=== PATIENT | male | born 1970 | race Caucasian/White ===

== ENCOUNTER 2024-07-11 15:09 | Observation (INO) | payer SELFPAY ==
[2024-07-11] VITALS (8 sets, daily range): BP systolic 101–134; BP diastolic 65–85; PULSE 91–120; TEMP 36.6–38.4; O2SAT 91–98; BMI 33.9; BMI 32.4
--- NOTE | 2024-07-11 15:14 | ED_ITS ---
[facility] HPI - General Adult General Chief complaint: Urogenital-Male Stated complaint: Testicular Time Seen by Provider: 07/11/24 15:14 Source: patient Mode of arrival: walk-in Limitations: no limitations History of Present Illness HPI narrative: The patient is a 53-year-old male presenting to the emergency department complaining of testicular pain. He states his scrotum is swollen and hard. The patient states that the left side is more uncomfortable than the right. Patient does have a history of an inguinal hernia but he states it was repaired. Patient states the pain is a 10 out of 10. Worse to palpate. Relieved by nothing. Pain does not radiate or move anywhere. Patient has a pronounced fullness from the left inguinal area into his scrotum on the left side. Patient states that this has been present since 5 PM yesterday. Patient denies any fever or chills. Denies any trauma. Denies any dysuria, urgency, frequency. No history of kidney stones. He states he does have a history of an inguinal hernia but states it was surgically repaired years ago. Patient did have a bowel movement and he had no diarrhea or constipation today. No black, bloody, tarry stools. Patient does not have a history of testicular torsion. Patient has not had any testicular infections. Related Data Home Medications ?Medication ?Instructions ?Recorded ?Confirmed No Known Home Medications 07/11/24 07/11/24 Allergies Allergy/AdvReac Type Severity Reaction Status Date / Time Iodinated Contrast Media AdvReac Rash Verified 07/11/24 16:39 Opioid HPI Opioid Management Most Recent Opioid Data: Last Pain Scale 4 07/11/24 17:15 07/11/24 Last ED Pain Assessment 07/11/24 17:15 Last MAR Pain Assessment 07/11/24 16:35 Review of Systems ROS Narrative 10 Systems were reviewed, and unless not ed in the [facility], all other systems are reviewed, unremarkable, or noncontributory. Exam Narrative Exam Narrative: Prior to examining the patient, I have washed with hospital approved and provided Antiseptic Hand Dairy Bacteriologist and have also applied gloves.? Prior to touching the patient, I asked for consent to examine the patient.? General: Alert and oriented, well nourished, mild distress. Eye: PERRL, EOMI, normal conjunctiva. HENT: Normocephalic, normal hearing, moist oral mucosa, no scleral icterus Lungs: Clear to auscultation and percussion, non-labored respiration. Heart: Normal rate, regular rhythm, no murmur, gallop or edema. Abdomen: Soft, non-tender, non-distended, normal bowel sounds, no masses. Urinary: Patient has normal external male genitalia. He is circumcised. His scrotum has good cremasteric reflex bilaterally. The scrotum contents feel firm and enlarged and extend up into the left inguinal canal. Testicles cannot be palpated. I could not auscultate bowel sounds in the scrotal area. The bulge is not reducible. It has indurated skin. There is no Nikolsky sign or skin breakdown in the scrotal sac Musculoskeletal: Normal range of motion and strength, no tenderness or swelling. Skin: Skin is warm, dry and pink, no rashes or lesions. Patient has no evidence of Bruce's. There patient has evidence of red and indurated skin but there is no well-demarcated border. Neurologic: Awake, alert, and oriented X3, CN II-XII intact. Psychiatric: Cooperative, appropriate mood and affect.? Following the conclusion of the examination, I have washed my hands thoroughly after removing examination gloves. Constitutional Vital Signs, click to edit/add: Last Vital Signs Temp 101.2 F H 07/11/24 16:43 Pulse 107 H 07/11/24 18:02 Resp 24 H 07/11/24 18:02 BP 108/70 07/11/24 18:02 Pulse Ox 95 07/11/24 18:02 O2 Del Method Room Air 07/11/24 18:02 Course Course Hospital Course: Upon seeing the patient I immediately instructed the patient that could have an incarcerated left inguinal hernia. Working to get a CT scan with IV contrast and we are going to hold laboratories. Patient was given IV 1 L normal saline bolus. Patient was also going to be given morphine 4 mg IV push and Zofran 4 mg IV push. Consultations Consultation #1: Discussed this case with the insulator technician. Although not listed as an allergy on our platform they have that the patient does have a contrast allergy. I went in and spoke with the patient about his contrast allergy and he states it is a rash. We are going to prophylactically give the patient Benadryl 50 mg IV push and methylprednisolone 125 mg IV push. I spoke to radiology personally. Time: 15:41 Consultation #2: Dr. Douglass who indicates that I can admit the patient to internal medicine. He agrees with my antibiotic selection. He states that the patient should resolve on his own. Time: 18:28 Consultation #3: Opportunity to speak to Yocasta. Yocasta was willing to accept the admission on behalf of . Placed. Time: 18:38 Vital Signs Vital signs: Vital Signs Pulse Rate 120 H 07/11/24 15:15 Respiratory Rate 22 H 07/11/24 15:15 Blood Pressure 134/82 07/11/24 15:15 Pulse Oximetry 98 07/11/24 15:15 Oxygen Delivery Method Room Air 07/11/24 15:15 Temperature 101.2 F H 07/11/24 16:43 Pulse Rate 107 H 07/11/24 18:02 Respiratory Rate 24 H 07/11/24 18:02 Blood Pressure 108/70 07/11/24 18:02 Pulse Oximetry 95 07/11/24 18:02 Oxygen Delivery Method Room Air 07/11/24 18:02 Medical Decision Making [facility] Narrative Medical decision making narrative: 15:44 sepsis risk appears on the patient's chart. I do not believe that the patient is septic from an infectious etiology. I believe the patient's pulse and respiratory rate are elevated simply because of intractable pain. 16:55 patient has labs of came back as well as the imaging. Patient has a lactic acid did have 4.1. Liter of fluid was added. However, when he went blood cell count of 0.9 thousand was seen, I added blood cultures x 2 and initiated Zosyn and vancomycin antibiotic therapy. The CT scan does not show any definitive etiology for his discomfort and pain. Therefore I ordered an ultrasound of the patient's please note that I have considered alternative diagnosis like 40 years gangrene but the patient does not have any evidence of Nikolsky sign, no crepitance in the testicles, no dark or eschar type tissue. 17:05 to reevaluate the patient and the patient tells me that his last meal was yesterday. The patient was sipping on root beer however when he came in. 18:15 case with plastics technician who tells me that she sees a large hydrocele on the left side with a lot of septation present reminiscent of an infectious process. Furthermore, she states that the skin over that painful hydrocele is thickened. The patient has already been started on the antibiotic therapy. 18:[address] Douglass 18:35 I spoke with Yocasta for internal medicine 18:40 magnesium 2 the patient's treatment regimen. The patient's magnesium is 1.4. I went in and reassessed the patient and queried him. He states that he quit drinking alcohol about 10 years ago and he states he does not know how or why he would be having depleted magnesium. Differential Diagnosis Differential Diagnosis: Incarcerated left inguinal hernia, trauma, testicular torsion, renal calcul Medical Records Medical records reviewed: Yes I reviewed the patient's medical records Medical records narrative: There are no medical records in our system available to me. Lab Data Lab results reviewed: Yes I reviewed the patient's lab results Lab results narrative: [place] has criteria suggest has severe sepsis. He is a white count of 22.9K and an initial Lactate of 4.2. Labs: Lab Results 07/11/24 07/11/24 07/11/24 Range/Units 15:30 16:55 17:09 WBC 22.9 H (4.0-11.0) 10^3/uL RBC 5.16 (4.70-6.10) 10^6/uL Hgb 15.4 (14.0-18.0) g/dL Hct 44.2 (42.0-54.0) % MCV 85.7 (80.0-94.0) fL MCH 29.8 (25.9-34.0) pg MCHC 34.8 (29.9-35.2) g/dL RDW 12.9 (11.0-15.0) % Plt Count 241 (150-450) 10^3/uL MPV 10.1 (9.5-13.5) fL Seg Neuts % (Manual) 88.0 H (43.0-75.0) Band Neutrophils % 7.0 H (0-5) % Lymphocytes % (Manual) 4.0 L (20.5-60.0) % Monocytes % (Manual) 1.0 L (1.7-12.0) % Eosinophils % (Manual) 0.0 L (0.9-7.0) % Basophils % (Manual) 0.0 L (0.2-2.0) % Neutrophils # (Manual) 20.15 H (1.4-6.5) 10^3/uL Band Neutrophils # 1.6 H (0.0-0.3) 10^3/uL Lymphocytes # (Manual) 0.91 L (1.20-3.80) 10^3/uL Monocytes # (Manual) 0.22 L (0.30-0.80) 10^3/uL Eosinophils # (Manual) 0.00 (0.00-0.70) 10^3/uL Basophils # (Manual) 0.00 (0.00-0.10) 10^3/uL PT 12.6 H (9.0-11.6) sec INR 1.21 Sodium 135 L (136-145) mmol/L Potassium 3.4 L (3.5-5.1) mmol/L Chloride 100 (98-107) mmol/L Carbon Dioxide 25.7 (21.0-32.0) mmol/L Anion Gap 12.7 BUN 18.0 (7.0-18.0) mg/dL Creatinine 1.31 H (0.70-1.30) mg/dL Est GFR ( Amer) >60 (>=60 mL/min/1.73m^2) Est GFR (Non-Af Amer) 57 L (>=60 mL/min/1.73m^2) BUN/Creatinine Ratio 13.7 Glucose 209 H (74-106) mg/dL Lactate 4.1 H* 2.1 H (0.4-2.0) mmol/L Calcium 8.7 (8.5-10.1) mg/dL Magnesium 1.4 L (1.8-2.4) mg/dL Total Bilirubin 1.3 H (0.2-1.0) mg/dL AST 13 L (15-37) U/L ALT 24 (16-63) U/L Alkaline Phosphatase 61 (46-116) U/L Total Protein 7.0 (6.4-8.2) g/dL Albumin 3.6 (3.4-5.0) g/dL Globulin 3.4 g/dL Albumin/Globulin Ratio 1.1 Urine Color Yellow (YELLOW) Urine Clarity Clear (CLEAR) Urine pH 7.0 (5.0-9.0) Ur Specific [place] <=1.005 A (1.005-1.025) Urine Protein Trace (NEG/TRACE) mg/dL Urine Glucose (UA) 250 A (NEGATIVE) mg/dL Urine Ketones Negative (NEGATIVE) mg/dL Urine Occult Blood Negative (NEGATIVE) Urine Nitrite Negative (NEGATIVE) Urine Bilirubin Negative (NEGATIVE) Urine Urobilinogen 1.0 (0.2-1.0) EU/dL Ur Leukocyte Esterase Negative (NEGATIVE) Critical Care Time Critical Care Time Critical Care Time: Yes Total Critical Care Time: 35 Attestation: This was needed for the treatment of prevention of clinically significant life- threatening infection. It was needed for emergent assessment due to his pain and continued and repeat physical examinations to make sure that his pain was well-controlled and that he was responding well to the sepsis bundle. To discuss with consultants as well as document the patient's medical record where they were in the emergency department. Discharge Plan Discharge Chief Complaint: Urogenital-Male Clinical Impression: Severe sepsis, Infected hydrocele, Cellulitis of scrotum, Hypomagnesemia Patient Disposition: Admitted As Inpatient Time of Disposition Decision: 18:43 Condition: Fair Prescriptions / Home Meds: No Action No Known Home Medications Print Language: Botswanan Referrals: EMILY TREADWELL [Physician] - 1 week
[2024-07-11] MEDS: 0.9 % SODIUM CHLORIDE 1,000 ML 1000 ML IV ×2 (15:33→16:48)
[2024-07-11] MEDS: ONDANSETRON PF 4 MG/2 ML VIAL IV (15:34)
[2024-07-11] MEDS: MORPHINE SULFATE 4 MG/ML VIAL IV (15:34)
[2024-07-11] MEDS: DIPHENHYDRAMINE HCL 50 MG/ML VIAL IV (15:50)
[2024-07-11] MEDS: METHYLPREDNISOLONE SOD SUCC PF 125 MG/2 ML VIAL IVP (15:50)
[2024-07-11 15:52] LABS: Hematocrit 44.2 % (42.0-54.0); Hemoglobin 15.4 g/dL (14.0-18.0); Mean Corpuscular HGB Conc 34.8 g/dL (29.9-35.2); Mean Corpuscular Hemoglobin 29.8 pg (25.9-34.0); Mean Corpuscular Volume 85.7 fL (80.0-94.0); Mean Platelet Volume 10.1 fL (9.5-13.5); Platelet Count 241 10^3/uL (150-450); Red Blood Count 5.16 10^6/uL (4.70-6.10); Red Cell Distribution Width 12.9 % (11.0-15.0); White Blood Count 22.9 10^3/uL (4.0-11.0)
[2024-07-11 16:06] LABS: INR 1.21; Prothrombin Time 12.6 sec (9.0-11.6)
[2024-07-11 16:08] LABS: Alanine Aminotransferase 24 U/L (16-63); Albumin Globulin Ratio 1.1; Albumin Level 3.6 g/dL (3.4-5.0); Alkaline Phosphatase 61 U/L (46-116); Anion Gap 12.7; Aspartate Amino Transferase 13 U/L (15-37); BUN Creatinine Ratio 13.7; Bilirubin Total 1.3 mg/dL (0.2-1.0); Calcium 8.7 mg/dL (8.5-10.1); Carbon Dioxide 25.7 mmol/L (21.0-32.0); Chloride 100 mmol/L (98-107); Estimated GFR (African America >60 (>=60 mL/min/1.73m^2); Estimated GFR (Non-African Ame 57 (>=60 mL/min/1.73m^2); Globulin 3.4 g/dL; Glucose 209 mg/dL (74-106); Magnesium 1.4 mg/dL (1.8-2.4); Potassium 3.4 mmol/L (3.5-5.1); Sodium 135 mmol/L (136-145)
[2024-07-11 16:21] LABS: Band Neutrophils Absolute 1.6 10^3/uL (0.0-0.3); Lactate/Lactic Acid 4.1 mmol/L (0.4-2.0); Lymphocytes Absolute Manual 0.91 10^3/uL (1.20-3.80); Monocytes Absolute Manual 0.22 10^3/uL (0.30-0.80); Segmented Neut Absolute Manual 20.15 10^3/uL (1.4-6.5)
--- NOTE | 2024-07-11 16:23 | CT_ITS ---
[address] [address] Patient Name: VALERIANO COPPOLA MRN: [id number] date: 1970 Sex: M Assigned Patient Location: ER Current Patient Location: .[facility] Accession/Order Number: [id number] Exam Date: 07/11/2024 16:15 Report Date: 07/11/2024 16:40 At the request of: LUKASZ CANSECO Procedure: CT abdomen pelvis w con EXAM: CT abdomen pelvis w con HISTORY: incarcerated hernia left COMPARISON: 02/03/2022 TECHNIQUE: Axial CT imaging was performed through the abdomen and pelvis with intravenous contrast. Multiplanar reformats were performed. Dose reduction techniques were achieved by using automated exposure control and/or adjustment of mA and/or kV according to patient size and/or use of iterative reconstruction technique. FINDINGS: Lung bases: Lung bases are clear. No pleural effusion. GI upper: Circumferential wall thickening of distal esophagus, may represent esophagitis. Liver: Hepatic steatosis. Normal size and contour. Stable 0.8 cm segment 6 cyst. Gallbladder: No significant abnormality. No cholelithiasis. Biliary system: No intra or extrahepatic biliary ductal dilatation. Spleen: Normal size. Pancreas: Unremarkable. Adrenal glands: Normal adrenal glands. Kidneys/ureters: Normal contours. No hydronephrosis. No nephrolithiasis or ureterolithiasis. Bilateral simple renal cysts. Unchanged perirenal linear opacity, likely sequela of prior infection/inflammation. Vessels: No aneurysm. Lymph Nodes: No lymphadenopathy. Small bowel: No wall thickening or dilatation. Colon: No wall thickening or dilatation. Sigmoid diverticulosis without evidence of acute diverticulitis. Appendix: No findings of appendicitis. Peritoneal cavity: No free fluid or pneumoperitoneum. Lower : The prostate is unremarkable. The urinary bladder is unremarkable. Small right and moderate left hydrocele. There is left varicocele. Bones: No acute bony abnormality. Soft tissues: Small fat-containing right and moderate left fat-containing inguinal hernia. Additional findings: None. CT/CT abdomen pelvis w con IMPRESSION: Small right and moderate left hydrocele. Left varicocele. Small fat-containing right and moderate left fat-containing inguinal hernia. Hepatic steatosis. Electronically authenticated by: YASMIN SOARES Date: 07/11/2024 16:40
[2024-07-11] MEDS: HYDROMORPHONE HCL 1 MG/ML CARTRIDGE IV (16:35)
--- NOTE | 2024-07-11 16:54 | US_ITS ---
The [address] [address] Patient Name: VALERIANO COPPOLA MRN: [id number] date: 1970 Sex: M Assigned Patient Location: ER Current Patient Location: ED.MAIN Accession/Order Number: [id number] Exam Date: 07/11/2024 18:00 Report Date: 07/11/2024 18:54 At the request of: LUKASZ CANSECO Procedure: US scrotum doppler EXAM: Scrotal ultrasound CLINICAL INDICATION: left testicular pain. COMPARISON: Ultrasound dated 09/24/2019 TECHNIQUE: The scrotal ultrasound was obtained with grayscale and color Doppler imaging as well as waveform analysis. FINDINGS: Testicles: Bilateral testicles are homogenous in echotexture. No mass or microlithiasis evident. The right testicle measures 5.4 x 2.9 x 3.3 cm. The left testicle measures 5.1 x 4.2 x 3.7 cm. Extratesticular findings: Small to moderate-sized left hydrocele with low-level internal echoes. Possible thin internal septation in the left hydrocele. No right hydrocele. No epididymal enlargement or mass. Testicular doppler: Symmetric color flow is visualized in both testicles. Arterial and venous waveforms are detected bilaterally. No asymmetric epididymal hyperemia. Thickened and edematous scrotum. US/US scrotum doppler IMPRESSION: 1. No evidence of testicular torsion or epididymoorchitis. 2. Cbejx-[id number]-[id number] sized left hydrocele with some internal hemorrhage or debris and possible thin internal septation. This could be sequela of prior trauma or prior infection. Electronically authenticated by: ULISES JIMENEZ Date: 07/11/2024 18:54
[2024-07-11] MEDS: PIPERACILLIN SODIUM/TAZOBACTAM 4.5 GM in 0.9 % SODIUM CHLORIDE 50 ML IV (17:18)
[2024-07-11 17:29] LABS: Bilirubin Urine NEGATIVE (NEGATIVE); Blood Urine NEGATIVE (NEGATIVE); Clarity Urine CLEAR (CLEAR); Color Urine YELLOW (YELLOW); Glucose Urine UA 250 mg/dL (NEGATIVE); Ketones Urine NEGATIVE (NEGATIVE); Leukocyte Esterase Urine NEGATIVE (NEGATIVE); Nitrite Urine NEGATIVE (NEGATIVE); Protein Urine TRACE mg/dL (NEG/TRACE); Specific Gravity Urine <=1.005 (1.005-1.025)
[2024-07-11 17:38] LABS: Urine Microscopic Indicated NO
[2024-07-11] MEDS: VANCOMYCIN HCL 1,500 MG in 0.9 % SODIUM CHLORIDE 500 ML 250 MG IV (17:46)
[2024-07-11 17:57] LABS: Lactate/Lactic Acid 2.1 mmol/L (0.4-2.0)
[2024-07-11 19:22] LABS: C Reactive Protein 5.55 mg/dL (<=0.50)
[2024-07-11] MEDS: MAGNESIUM SULFATE IN WATER 2 GM/50 ML PREMIX IV (19:50)
--- NOTE | 2024-07-11 20:24 | RESP.RT ---
No PRN breathing tx given. Pt denies need. No respiratory distress noted.
[2024-07-11] MEDS: OXYCODONE HCL/ACETAMINOPHEN 5MG/325MG 2 TAB PO (21:06)
[2024-07-11] MEDS: POTASSIUM CHLORIDE/D5-0.9%NACL 1,000 ML 100 ML IV (21:06)
[2024-07-11] MEDS: HYDROMORPHONE HCL 1 MG/ML CARTRIDGE IVP (21:07)
[2024-07-11] MEDS: IBUPROFEN 400 MG TABLET PO (21:07)
[2024-07-11] MEDS: TEMAZEPAM 15 MG CAPSULE PO (21:07)
[2024-07-12] VITALS (9 sets, daily range): BP systolic 104–110; BP diastolic 66–75; PULSE 76–101; TEMP 36.2–36.6; O2SAT 92–98
[2024-07-12] MEDS: PIPERACILLIN SODIUM/TAZOBACTAM 3.375 GM in 0.9 % SODIUM CHLORIDE 50 ML IV (05:19)
[2024-07-12] MEDS: OXYCODONE HCL/ACETAMINOPHEN 5MG/325MG 2 TAB PO (05:20)
[2024-07-12 05:37] LABS: Basophils Percent Auto 0.1 % (0.2-2.0); Hematocrit 42.6 % (42.0-54.0); Hemoglobin 14.2 g/dL (14.0-18.0); Immature Granulocytes Abs Auto 0.66 10^3/uL (0.00-0.03); Immature Granulocytes Pct Auto 2.9 % (0.0-0.5); Lymphocytes Absolute Auto 0.7 10^3/uL (1.2-3.8); Mean Corpuscular HGB Conc 33.3 g/dL (29.9-35.2); Mean Corpuscular Hemoglobin 29.2 pg (25.9-34.0); Mean Corpuscular Volume 87.7 fL (80.0-94.0); Mean Platelet Volume 10.2 fL (9.5-13.5); Monocytes Absolute Auto 0.8 10^3/uL (0.3-0.8); Monocytes Percent Auto 3.5 % (1.7-12.0); Neutrophils Absolute Auto 20.4 10^3/uL (1.4-6.5); Neutrophils Percent Auto 90.5 % (43.0-75.0); Platelet Count 221 10^3/uL (150-450); Red Blood Count 4.86 10^6/uL (4.70-6.10); Red Cell Distribution Width 13.1 % (11.0-15.0); White Blood Count 22.5 10^3/uL (4.0-11.0)
[2024-07-12] MEDS: POTASSIUM CHLORIDE/D5-0.9%NACL 1,000 ML 100 ML IV (05:46)
[2024-07-12 06:07] LABS: Alanine Aminotransferase 22 U/L (16-63); Alkaline Phosphatase 54 U/L (46-116); Anion Gap 11.8; Aspartate Amino Transferase 17 U/L (15-37); BUN Creatinine Ratio 15.4; Bilirubin Total 0.8 mg/dL (0.2-1.0); Calcium 7.6 mg/dL (8.5-10.1); Carbon Dioxide 27.3 mmol/L (21.0-32.0); Chloride 106 mmol/L (98-107); Estimated GFR (African America >60 (>=60 mL/min/1.73m^2); Estimated GFR (Non-African Ame >60 (>=60 mL/min/1.73m^2); Globulin 3.1 g/dL; Glucose 161 mg/dL (74-106); Magnesium 2.1 mg/dL (1.8-2.4); Potassium 4.1 mmol/L (3.5-5.1); Sodium 141 mmol/L (136-145); Total Protein 6.1 g/dL (6.4-8.2)
[2024-07-12] MEDS: VANCOMYCIN HCL 1,250 MG in 0.9 % SODIUM CHLORIDE 250 ML 166.667 MG IV (08:20)
[2024-07-12] MEDS: 0.9 % SODIUM CHLORIDE 1,000 ML 100 ML IV (08:20)
--- NOTE | 2024-07-12 09:52 | P.HP_ITS ---
HPI H&P: HPI History of Present Illness Chief complaint: SEPSIS w/infected hydrocele and scrotal cellulitis Narrative: HPI and Hospital Course: 53-year-old male p/w to the emergency department with testicular pain. He states that his noticed mild discomfort and pain Tuesday. Subsequently, his pain started to get worse with scrotal swelling/overlying skin erythema and induration. He denies hx of trauma. Denies fever/chills. Workup in ER revealed leukocytosis and mild acute kidney injury. CT abdomen pelvis and scrotal ultrasound revealed bilateral inguinal hernia and hydrocele with possible infection within hydrocele. He was treated with IV vancomycin and Zosyn overnight. He subjectively feels considerably better but he is still complaining of scrotal pain along with scrotal swelling that has come down since admission. He is hemodynamically stable and can be discharged on oral antibiotics. He was instructed to follow-up with urology and or general surgery as an outpatient. Patient was educated on worrisome signs and symptoms and that he should seek medical attention if he developed worsening pain/swelling. Opioid HPI Opioid Management Most Recent Pain and Opioid Data: Last Pain Scale 6 07/12/24 07:00 07/12/24 Last Pain Assessment 07/12/24 08:00 Last ED Pain Assessment 07/11/24 17:15 Last MAR Pain Assessment 07/12/24 06:38 Last ORT Total Score 0 07/11/24 20:39 07/11/24 Last ORT Risk Category Low Risk 07/11/24 20:39 07/11/24 Review of Systems ROS Status of ROS 10 or more systems reviewed and unremark able except as noted in history and below [facility] Medical History (Updated 07/12/24 @ 09:59 by Shaikh Andreea MD) Severe sepsis ?A41.9 - Sepsis, unspecified organism (ICD-10) ?R65.20 - Severe sepsis without septic shock (ICD-10) Surgical History (Updated 07/12/24 @ 09:56 by Shaikh Andreea MD) H/O inguinal hernia repair ?Z98.890 - Other specified postprocedural states (ICD-10) ?Z87.19 - Personal history of other diseases of the digestive system (ICD-10) Social History (Updated 07/12/24 @ 09:57 by Shaikh Andreea MD) Within the past year, how often did you have a drink containing alcohol: monthly or less Within the past year, how many standard drinks containing alcohol did you have on a typical day: 1 or 2 Within the past year, how often did you have six or more drinks on one occasion: never Total score: 0 Score interpretation: A score less than 4 is consistent with normal alcohol consumption. Smoking status: Never smoker Non-prescribed substance use: cannabis (any form) Highest level of school completed/degree received: 9th grade Little interest or pleasure in doing things: not at all Feeling down, depressed, or hopeless: not at all Meds Home Medications and Allergies Home Medications ?Medication ?Instructions ?Recorded ?Confirmed ?Type No Known Home Medications 07/11/24 07/11/24 History Allergies Allergy/AdvReac Type Severity Reaction Status Date / Time Iodinated Contrast Media AdvReac Rash Verified 07/11/24 16:39 Exam Narrative Exam Narrative: FAHAD Hickey present as Alarm Security Or Surveillance Monitor Constitutional Vital Signs, click to edit/add: Last Vital Signs Temp 97.8 F 07/12/24 07:38 Pulse 89 07/12/24 08:00 Resp 18 07/12/24 07:45 BP 104/66 07/12/24 07:38 Pulse Ox 97 07/12/24 08:00 O2 Del Method Nasal Cannula 07/12/24 07:38 O2 Flow Rate 2 07/12/24 07:38 Documenting provider has reviewed patient's vital signs: yes Common normals: no apparent distress and oriented x3 General appearance: cooperative [facility] Common normals: normocephalic and head/scalp atraumatic Head and scalp: normocephalic and atraumatic Eye Common normals: conjunctivae normal and no scleral icterus Conjunctiva: conjunctiva(e) normal Respiratory Common normals: normal respiratory effort and clear to auscultation bilaterally Effort & inspection: able to speak in complete sentences Auscultation: clear to auscultation bilaterally Cardio Common normals: regular rate, S1 normal heart sound and S2 normal heart sound Rate: regular rate Heart sounds: S1 normal and S2 normal GI Common normals: Normal to inspection, nondistended, normoactive bowel sounds present, soft to palpation, non-tender and no hepatosplenomegaly Palpation: soft and no hepatosplenomegaly Scrotum: scrotal swelling Other: Mild pain on palpation. Skin with mild erythema and induration. Extremity Common normals: no clubbing, cyanosis or edema Neuro Common normals: oriented x3, moves all extremities and no focal motor deficits Psych Common normals: mental status grossly normal, denies hallucinations, denies homicidal ideation and denies suicidal ideation Results Labs Labs: Short CBC 07/11/24 07/12/24 Range/Units 15:30 05:13 WBC 22.9 H 22.5 H (4.0-11.0) 10^3/uL Hgb 15.4 14.2 (14.0-18.0) g/dL Hct 44.2 42.6 (42.0-54.0) % Plt Count 241 221 (150-450) 10^3/uL BMP 07/11/24 07/12/24 15:30 05:13 Sodium 135 L 141 Potassium 3.4 L 4.1 Chloride 100 106 Carbon Dioxide 25.7 27.3 BUN 18.0 18.0 Creatinine 1.31 H 1.17 Glucose 209 H 161 H Calcium 8.7 7.6 L Liver Function 07/11/24 07/12/24 Range/Units 15:30 05:13 Total Bilirubin 1.3 H 0.8 (0.2-1.0) mg/dL AST 13 L 17 (15-37) U/L ALT 24 22 (16-63) U/L Alkaline Phosphatase 61 54 (46-116) U/L Albumin 3.6 3.0 L (3.4-5.0) g/dL Urine 07/11/24 Range/Units 16:55 Urine Color Yellow (YELLOW) Urine Clarity Clear (CLEAR) Urine pH 7.0 (5.0-9.0) Ur Specific [place] <=1.005 A (1.005-1.025) Urine Protein Trace (NEG/TRACE) mg/dL Urine Glucose (UA) 250 A (NEGATIVE) mg/dL Assessment and Plan Assessment and Plan (1) Sepsis: Assessment and Plan: HR> 90, RR> 20, WBC >13K due to cellulitis. Hemodynamically stable. WBC persiste nt but patient clinically improved overnight. Qualifiers: Sepsis type: sepsis due to unspecified organism Sepsis acute organ dysfunction status: without acute organ dysfunction Qualified Code(s): A41.9 - Sepsis, unspecified organism (2) Cellulitis of scrotum: Assessment and Plan: No testicular torsion/abscess. Clinically better considerably with overnight abx. Stable for discharge on oral Levaquin (3) Infected hydrocele: Assessment and Plan: No abscess. Clinically better. Stable for discharge on oral levaquin (4) RAQUEL (acute kidney injury): Assessment and Plan: Resolved. (5) Leukocytosis: Assessment and Plan: persistent but clinically better. Will give him a scrip for repeat CBC within 1 weeks Qualifiers: Leukocytosis type: leukemoid reaction Qualified Code(s): D72.823 - Leukemoid reaction (6) Lactic acidosis: Assessment and Plan: resolved. due to sepsis/dehydration
--- NOTE | 2024-07-12 10:21 | CM.NOTE ---
Rounds made with Dr. Doran. Plan for discharge today. Good RX card given for prescriptions. Family Physician list given as well.
--- NOTE | 2024-07-13 13:26 | CM.DCFOLLOWU ---
Wrong number listed 07/13/24
== END 2024-07-12 11:39 | disposition home or self-care (01) ==
LOC: ER 18:43 → MS 20:22
PROVIDERS: Emergency Medicine; Registered Nurse; Admitting Provider Internal Medicine; Emergency Provider Emergency Medicine; Visit Provider Internal Medicine
DX: A41.9 Sepsis, unspecified organism (principal); N43.1 Infected hydrocele; R65.20 Severe sepsis without septic shock; E83.42 Hypomagnesemia; N49.2 Inflammatory disorders of scrotum; N17.9 Acute kidney failure, unspecified; E86.0 Dehydration; E87.20 Acidosis, unspecified; D72.823 Leukemoid reaction
CPT/HCPCS: 36415; 74177; 76870; 80053; 81003; 83605; 83735; 85007; 85025; 85027; 85610; 86140; 87040; 93976; 94761; 96365; 96366; 96367; 96368; 96375; 96376; 99285; G0378; J1171; J1200; J2270; J2405; J2543; J2919; J3370; J3475; Q9967

== ENCOUNTER 2024-07-19 16:20 | Emergency (ER) | payer OTHER, SELFPAY ==
[2024-07-19 16:24] VITALS: BP 145/92; PULSE 111; TEMP 36.6; O2SAT 95; BMI 31.9
--- NOTE | 2024-07-19 17:04 | ED.GENADUL1 ---
HPI HPI - General Adult General Chief complaint: Urogenital-Male Stated complaint: GENITAL PROBLEMS Time Seen by Provider: 07/19/24 16:32 Source: patient Mode of arrival: walk-in Limitations: no limitations History of Present Illness HPI narrative: The patient is coming to the ER after he was evaluated in outpatient primary care office for the same problem that he was discharged from the hospital 7 days ago for. Patient still having redness of his left scrotum and although he did admit that the swelling is better but the pain is still there and he is not taking anything other than ibuprofen The patient denies any nausea vomiting or any other complaints and he has been taking his Levaquin since he was discharged Related Data Previous Rx's ?Medication ?Instructions ?Recorded cephalexin 500 mg capsule 500 mg PO Q8H 7 days #21 caps 07/19/24 tramadol 50 mg tablet 50 mg PO Q8H PRN pain #9 tabs 07/19/24 Allergies Allergy/AdvReac Type Severity Reaction Status Date / Time Iodinated Contrast Media AdvReac Rash Verified 07/19/24 16:29 Opioid HPI Opioid Management Most Recent Opioid Data: Last Pain Scale 6 07/12/24 07:00 07/12/24 Last ORT Total Score 0 07/11/24 20:39 07/11/24 Last ORT Risk Category Low Risk 07/11/24 20:39 07/11/24 Review of Systems ROS Status of ROS 10 or more systems reviewed and unremarkable except as noted in history and below PFSH PFS Medical History (Updated 07/19/24 @ 17:54 by Mary Kinsey MD) Cellulitis of scrotum ?N49.2 - Inflammatory disorders of scrotum (ICD-10) Infected hydrocele ?N43.1 - Infected hydrocele (ICD-10) Severe sepsis ?A41.9 - Sepsis, unspecified organism (ICD-10) ?R65.20 - Severe sepsis without septic shock (ICD-10) Surgical History (Updated 07/12/24 @ 09:56 by Shaikh Andreea MD) H/O inguinal hernia repair ?Z98.890 - Other specified postprocedural states (ICD-10) ?Z87.19 - Personal history of other diseases of the digestive system (ICD-10) Social History (Updated 07/12/24 @ 09:57 by Shaikh Andreea MD) Within the past year, how often did you have a drink containing alcohol: monthly or less Within the past year, how many standard drinks containing alcohol did you have on a typical day: 1 or 2 Within the past year, how often did you have six or more drinks on one occasion: never Total score: 0 Score interpretation: A score less than 4 is consistent with normal alcohol consumption. Smoking status: Never smoker Non-prescribed substance use: cannabis (any form) Highest level of school completed/degree received: 9th grade Little interest or pleasure in doing things: not at all Feeling down, depressed, or hopeless: not at all Exam Narrative Exam Narrative: Nurses notes and vital signs reviewed and patient is not hypoxic. General: Well-appearing and in no apparent distress. Skin: Warm, dry, no pallor noted. No rash. Head: Normocephalic, atraumatic. Neck: Supple, non-tender. Eye: Pupils are equal, round and EOMI. No scleral icterus. Ears, Nose, Mouth, and Throat: TM are clear, no nasal mucosal hypertrophy. Oral mucosa is moist, no posterior oropharynx erythema, uvula is mid-line Cardiovascular: Regular Rate and Rhythm without murmur, gallop or rub. Respiratory: No accessory muscle use or respiratory distress. Lungs are clear to auscultation, no wheezing, rales or rhonchi Chest Wall: no tenderness Back: No midline thoracic or lumbar vertebral tenderness. No CVA tenderness Musculoskeletal: normal ROM, no calf or popliteal tenderness, no lower extremity edema/swelling GI: Abdomen is soft, non-distended. Normal bowel sounds. No masses appreciated. No tenderness to palpation. No rebound, guarding, or rigidity noted. Neurological: A&O x4. No cranial nerve dysfunction observed. No truncal ataxia. Moves all extremities. Sensation intact. Psychiatric: Cooperative and interactive. Normal mood and affect. Scrotal examination: Patient have swelling of the scrotum generally with no specific tenderness noted the skin of the scrotum is thickened although the patient swelling seems to be better because the skin is not tight and is wrinkled, the patient scrotum is mildly red but the is not hot No open wound no fluctuation Constitutional Vital Signs, click to edit/add: Last Vital Signs Temp 97.9 F 07/19/24 16:24 Pulse 111 H 07/19/24 16:24 Resp 16 12/12/24 16:24 BP 145/92 H 07/19/24 16:24 Pulse Ox 95 07/19/24 16:24 O2 Del Method Room Air 07/19/24 16:24 Course Vital Signs Vital signs: Vital Signs Temperature 97.9 F 07/19/24 16:24 Pulse Rate 111 H 07/19/24 16:24 Respiratory Rate 16 07/19/24 16:24 Blood Pressure 145/92 H 07/19/24 16:24 Pulse Oximetry 95 07/19/24 16:24 Oxygen Delivery Method Room Air 07/19/24 16:24 Temperature 97.9 F 07/19/24 16:24 Pulse Rate 111 H 07/19/24 16:24 Respiratory Rate 16 07/19/24 16:24 Blood Pressure 145/92 H 07/19/24 16:24 Pulse Oximetry 95 07/19/24 16:24 Oxygen Delivery Method Room Air 07/19/24 16:24 Medical Decision Making MDM Narrative Medical decision making narrative: The patient CBC shows improvement in his white blood cell and the chemistry was within normal Clinical exam at the bedside showed that the patient have improvement in his cellulitis although he still have mild redness The patient ready almost finished 7 days of levofloxacin he had Keflex started right now with tramadol for pain Patient was instructed about monitoring his symptoms for any fever chills or increasing pain he is to come back to the ER The patient is to follow up with primary care physician in next 2-3 days or to return to the emergency department should any of the signs or symptoms worsen or new symptoms develop. The patient agrees with the following Diagnosis and Treatment plan and the patient will be discharged home. Lab Data Labs: Lab Results 07/19/24 Range/Units 16:45 WBC 8.4 (4.0-11.0) 10^3/uL RBC 5.22 (4.70-6.10) 10^6/uL Hgb 15.2 (14.0-18.0) g/dL Hct 45.4 (42.0-54.0) % MCV 87.0 (80.0-94.0) fL MCH 29.1 (25.9-34.0) pg MCHC 33.5 (29.9-35.2) g/dL RDW 12.7 (11.0-15.0) % Plt Count 327 (150-450) 10^3/uL MPV 9.7 (9.5-13.5) fL Neut % (Auto) 69.1 (43.0-75.0) % Lymph % (Auto) 18.6 L (20.5-60.0) % [place] % (Auto) 9.2 (1.7-12.0) % Eos % (Auto) 0.7 L (0.9-7.0) % Baso % (Auto) 0.6 (0.2-2.0) % Neut # (Auto) 5.8 (1.4-6.5) 10^3/uL Lymph # (Auto) 1.6 (1.2-3.8) 10^3/uL [place] # (Auto) 0.8 (0.3-0.8) 10^3/uL Eos # (Auto) 0.1 (0.0-0.7) 10^3/uL Baso # (Auto) 0.1 (0.0-0.1) 10^3/uL Abs Immat Gran (auto) 0.15 H (0.00-0.03) 10^3/uL Imm/Tot Granulo (auto) 1.8 H (0.0-0.5) % Sodium 140 (136-145) mmol/L Potassium 3.3 L (3.5-5.1) mmol/L Chloride 102 (98-107) mmol/L Carbon Dioxide 30.7 (21.0-32.0) mmol/L Anion Gap 10.6 BUN 18.0 (7.0-18.0) mg/dL Creatinine 1.12 (0.70-1.30) mg/dL Est GFR ( Amer) >60 (>=60 mL/min/1.73m^2) Est GFR (Non-Af Amer) >60 (>=60 mL/min/1.73m^2) BUN/Creatinine Ratio 16.1 Glucose 124 H (74-106) mg/dL Lactate 1.4 (0.4-2.0) mmol/L Calcium 8.5 (8.5-10.1) mg/dL Total Bilirubin 0.4 (0.2-1.0) mg/dL AST 9 L (15-37) U/L ALT 24 (16-63) U/L Alkaline Phosphatase 75 (46-116) U/L Total Protein 7.3 (6.4-8.2) g/dL Albumin 3.3 L (3.4-5.0) g/dL Globulin 4.0 g/dL Albumin/Globulin Ratio 0.8 Discharge Plan Discharge Chief Complaint: Urogenital-Male Clinical Impression: Cellulitis of scrotum, Pain in scrotum Patient Disposition: Home, Self-Care Time of Disposition Decision: 17:54 Condition: Good Prescriptions / Home Meds: New cephalexin 500 mg capsule 500 mg PO Q8H 7 Days Qty: 21 0RF tramadol 50 mg tablet 50 mg PO Q8H PRN (Reason: pain) Qty: 9 0RF Discontinued levofloxacin 750 mg tablet 750 mg PO DAILY 10 Days Qty: 10 0RF Print Language: Marshallese Instructions: Scrotal Pain (ED) Referrals: Physician,Non-Staff, MD [Primary Care Provider] - 1 week
[2024-07-19] MEDS: KETOROLAC TROMETHAMINE 30 MG/ML VIAL 15 MG IVP (17:08)
--- NOTE | 2024-07-19 17:10 | PC.NURSE ---
Scrotum red and swollen, no drainage from area.
[2024-07-19 17:12] LABS: Basophils Absolute Auto 0.1 10^3/uL (0.0-0.1); Basophils Percent Auto 0.6 % (0.2-2.0); Eosinophils Absolute Auto 0.1 10^3/uL (0.0-0.7); Eosinophils Percent Auto 0.7 % (0.9-7.0); Hematocrit 45.4 % (42.0-54.0); Hemoglobin 15.2 g/dL (14.0-18.0); Immature Granulocytes Abs Auto 0.15 10^3/uL (0.00-0.03); Immature Granulocytes Pct Auto 1.8 % (0.0-0.5); Lymphocytes Absolute Auto 1.6 10^3/uL (1.2-3.8); Lymphocytes Percent Auto 18.6 % (20.5-60.0); Mean Corpuscular HGB Conc 33.5 g/dL (29.9-35.2); Mean Corpuscular Hemoglobin 29.1 pg (25.9-34.0); Mean Platelet Volume 9.7 fL (9.5-13.5); Monocytes Absolute Auto 0.8 10^3/uL (0.3-0.8); Monocytes Percent Auto 9.2 % (1.7-12.0); Neutrophils Absolute Auto 5.8 10^3/uL (1.4-6.5); Neutrophils Percent Auto 69.1 % (43.0-75.0); Platelet Count 327 10^3/uL (150-450); Red Blood Count 5.22 10^6/uL (4.70-6.10); Red Cell Distribution Width 12.7 % (11.0-15.0); White Blood Count 8.4 10^3/uL (4.0-11.0)
[2024-07-19 17:19] LABS: Alanine Aminotransferase 24 U/L (16-63); Albumin Globulin Ratio 0.8; Albumin Level 3.3 g/dL (3.4-5.0); Alkaline Phosphatase 75 U/L (46-116); Anion Gap 10.6; Aspartate Amino Transferase 9 U/L (15-37); BUN Creatinine Ratio 16.1; Bilirubin Total 0.4 mg/dL (0.2-1.0); Calcium 8.5 mg/dL (8.5-10.1); Carbon Dioxide 30.7 mmol/L (21.0-32.0); Chloride 102 mmol/L (98-107); Estimated GFR (African America >60 (>=60 mL/min/1.73m^2); Estimated GFR (Non-African Ame >60 (>=60 mL/min/1.73m^2); Glucose 124 mg/dL (74-106); Potassium 3.3 mmol/L (3.5-5.1); Sodium 140 mmol/L (136-145); Total Protein 7.3 g/dL (6.4-8.2)
[2024-07-19 17:37] LABS: Lactate/Lactic Acid 1.4 mmol/L (0.4-2.0)
[2024-07-19] MEDS: CEPHALEXIN 500 MG CAPSULE PO (18:00)
== END 2024-07-19 18:17 | disposition home or self-care (01) ==
PROVIDERS: Emergency Provider Emergency Medicine
DX: N49.2 Inflammatory disorders of scrotum (principal); N50.82 Scrotal pain
CPT/HCPCS: 36415; 80053; 83605; 85025; 96374; 99285; J1885

== ENCOUNTER 2024-10-12 13:34 | Outpatient (OUT) | payer OTHER, SELFPAY ==
--- OUTSIDE RECORDS SUMMARY | 2024-10-12 13:53 | XMS_ITS | CCD ---
Author Organization [facility] Care Team Providers Care News Video Editor Name Role Phone DR ROMAINE PALOMO Consulting Unavailable HOUSE, DR DIAZ Primary Care Unavailable AGAPITO, DR HERNANDEZ Admitting Unavailable HAY, DR HERNANDEZ Attending Unavailable AGAPITO, DR HERNANDEZ Consulting Unavailable HOUSE, DR DIAZ Admitting Unavailable HOUSE, DR DIAZ Primary Care Unavailable MILE, DR DIAZ Consulting Unavailable HOUSE, DR DIAZ Attending Unavailable KAITLIN, DR KELLY Weeks Consulting Unavailable HOUSE, DR DIAZ Primary Care Unavailable DAYO, UMAIR Admitting Unavailable DAYO, UMAIR Attending Unavailable DAYO, UMAIR Consulting Unavailable MILE, DR DIAZ Primary Care Unavailable JERMAINE, SUNDEEP Admitting Unavailable JERMAINE, SUNDEEP Consulting Unavailable JERMAINE, SUNDEEP Attending Unavailable ROSS, BROCK Consulting Unavailable Oliverio Treadwell Primary Care Physician [phone] Kristine Knight Unavailable Unavailable Corey DOUGLASS Attending Unavailable CHRISTINA, Corey Khan Attending Unavailable Corey DOUGLASS Attending Unavailable OLIVERIO TREADWELL Primary Care Physician [phone] Allergies Allergy Classification Reported Allergen(s) Allergy Type Date of Onset Reaction(s) Facility (1 source) Iodine (And Iodine Containting Drugs) Drug allergy (disorder) [facility] Repository (3 sources) Contrast media; Translations: [Contrast Dye] Drug allergy Weal (disorder) [facility] (3 sources) metroNIDAZOLE; Translations: [metronidazole] Drug Allergy Unknown (qualifier value) [facility] Medications Current Medications Medication Drug Class(es) Dates Sig (Normalized) Sig (Original) cephalexin 500 mg oral capsule (1 source) Cephalosporin Antibacterial Start: 07-27-2024 End: 09-25-2024 take 1 capsule by mouth twice daily cephalexin 500 mg Cap 500 mg = 1 cap(s), Oral, BID, X 30 day(s), # 60 cap(s), Refills(s) 1, Pharmacy: [facility]/pharmacy #[id number], 178, cm, 07/27/24 9:40:00 EST, Height/Length Dosing, 102.8, kg, 07/27/24 9:40:00 EST, Weight Dosing Start Date: 07/27/24 Stop Date: 09/25/24 Status: Ordered tamsulosin hydrochloride 0.4 mg oral capsule (1 source) alpha-Adrenergic John Start: 07-27-2024 take 1 capsule by mouth twice daily tamsulosin 0.4 mg Cap 0.4 mg = 1 cap(s), Oral, BID, # 60 cap(s), Refills(s) 11, Pharmacy: [facility]/pharmacy #[id number], 178, cm, 07/27/24 9:40:00 EST, Height/Length Dosing, 102.8, kg, 07/27/24 9:40:00 EST, Weight Dosing Start Date: 07/27/24 Status: Ordered traMADol hydrochloride 50 mg oral tablet (1 source) Opioid Agonist Start: 07-27-2024 traMADOL 50 mg Tab 50 mg = 1 tab(s), Refills(s) 0 Start Date: 07/27/24 Status: Ordered Problems Active Problems Problem Classification Problem Date Documented Date Episodic/Chronic Abdominal pain (3 sources) Right lower quadrant pain; Translations: [RIGHT LOWER QUADRANT PAIN] Onset: 02-03-2022 Episodic E Codes: Natural/environment (1 source) Exposure to other specified factors, initial encounter; Translations: [EXPOSURE OTHER SPEC FACTORS INITIAL] Onset: 02-05-2022 Episodic Epilepsy; convulsions (1 source) Seizure; Translations: [Unspecified convulsions] Onset: 09-17-2022 Episodic Genitourinary symptoms and ill-defined conditions (4 sources) Genuine stress incontinence; Translations: [Urge incontinence of urine] 09-26-2019 Chronic Headache; including migraine (2 sources) Headache 09-26-2019 Episodic Hyperplasia of prostate (3 sources) Benign prostatic hypertrophy with outflow obstruction; Translations: [Benign prostatic hyperplasia with lower urinary tract symptoms] Onset: 07-27-2024 09-26-2019 Chronic Inflammatory conditions of male genital organs (2 sources) Prostatitis; Translations: [Inflammatory disease of prostate, unspecified] Onset: 07-27-2024 Episodic Mood disorders (2 sources) Depressive disorder 09-26-2019 Chronic Osteoarthritis (1 source) Arthritis 07-27-2024 Chronic Other connective tissue disease (1 source) Neurological symptom; Translations: [Unspecified symptoms and signs involving the nervous system] Onset: 09-17-2022 Episodic Other diseases of veins and lymphatics (2 sources) Varicocele; Translations: [Scrotal varices] Onset: 07-27-2024 Episodic Other injuries and conditions due to external causes (2 sources) Injury of head 09-26-2019 Episodic Other male genital disorders (2 sources) Disorder of male genital organ 09-26-2019 Episodic Other male genital disorders (2 sources) Pain in testicle 09-26-2019 Episodic Other male genital disorders (1 source) Hydrocele of testis; Translations: [Hydrocele, unspecified] Onset: 07-27-2024 Episodic Other nervous system disorders (1 source) Polyneuropathy; Translations: [Polyneuropathy, unspecified] Onset: 09-17-2022 Chronic Other nervous system disorders (2 sources) Neuropathy 12-07-2020 Chronic Spondylosis; intervertebral disc disorders; other back problems (4 sources) Cervical radiculopathy; Translations: [Radiculopathy, cervical region] Onset: 09-19-2022 Episodic Sprains and strains (2 sources) Strain of muscle, fascia and tendon of abdomen, initial encounter; Translations: [Unspecified sprain of left hip, initial encounter] Onset: 07-09-2021 Episodic Substance-related disorders (2 sources) Smoker 12-07-2020 Chronic Comment on above: Added secondary to d ocumentation in Social History. Substance-related disorders (1 source) Psychoactive substance abuse; Translations: [Other psychoactive substance use, unspecified, uncomplicated] Onset: 09-18-2022 Episodic Unclassified (3 sources) CONTACT W/AND (SUSP) EXPOS COVID-19; Translations: [CONTACT W/AND (SUSP) EXPOS COVID-19] Onset: 05-16-2021 Past or Other Problems Problem Classification Problem Date Documented Da te Episodic/Chronic E Codes: Fall (1 source) Fall into hole, initial encounter; Translations: [FALL INTO HOLE INITIAL ENCOUNTER] Onset: 07-09-2021 Episodic Other non-traumatic joint disorders (3 sources) Pain in left hip; Translations: [PAIN IN LEFT HIP] Onset: 07-07-2021 Episodic Residual codes; unclassified (4 sources) Edema, unspecified; Translations: [EDEMA UNSPECIFIED] Onset: 04-21-2021 Episodic Screening and history of mental health and substance abuse codes (1 source) Personal history of nicotine dependence; Translations: [PERSONAL HISTORY OF NICOTINE DEPEND] Onset: 07-09-2021 Episodic Skin and subcutaneous tissue infections (2 sources) Cellulitis of left lower limb; Translations: [Cellulitis of right lower limb] Onset: 05-04-2021 Episodic Unclassified (1 source) CONTACT W/AND (SUSP) EXPOS COVID-19; Translations: [CONTACT W/AND (SUSP) EXPOS COVID-19] Onset: 05-12-2021 Results Test Name Value Interpretation Reference Range Facility Ambulatory Visit Summaryon 1 09-27-2023 Ambulatory Visit Summary Ambulatory Visit Summary VALERIANO COPPOLA :1970 Visit Date:07/27/2024 Ambulatory Visit Instructions Your Diagnosis Hydrocele Prostatitis BPH with urinary obstruction Varicocele Your Care Team Attending Physician - Corey DOUGLASS MD Primary Care Physician - OLIVERIO TREADWELL DO This Is Your Medications List cephalexin (cephalexin 500 mg Cap) tamsulosin (tamsulosin 0.4 mg Cap) Contact prescribing physician if questions or concerns tramadol (traMADOL 50 mg Tab) Procedures Performed Repair of inguinal hernia (01/2019), Colonoscopy. Discharge Vitals Temperature (Oral) 37 ???C Heart Rate (Peripheral) 84 Respiratory Rate 18 Blood Pressure 110/78 Height 178 cm Height 70 in Weight 102.8 kg Weight 226.635 lb BMI 32.45 What to do next Scheduled Follow-Up Appointments Tuesday 10:45 AM EDT With: Corey DOUGLASS MD Where: [facility] [address] [address] [place] [address]- You Need to Schedule the Following Appointments Follow Up with Corey DOUGLASS MD, URL When: Where: [address] [place] [id number]- Medications What How Much When Instructions New tamsulosin (tamsulosin 0.4 mg Cap) 1 Capsules By Mouth 2 times a day Refills: 11 Pickup at [facility]/pharmacy #[id number] Changed cephalexin (cephalexin 500 mg Cap) 1 Capsules By Mouth 2 times a day Duration: 30 Days Pickup at [facility]/pharmacy #[id number] Unchanged tramadol (traMADOL 50 mg Tab) 1 Tablets Contact prescribing physician if questions or concerns Pharmacy Information [facility]/pharmacy #[id number]: [address] [place], [place] [id number] [phone] Allergies Contrast Dye (Hives) Flagyl (Unknown) Problems Ongoing - Any problem that you are currently receiving treatment for. Arthritis Back pain BPH with urinary obstruction Depression Head injury Headache Hydrocele Neuropathy Prostatitis Smoker Stress incontinence of urine Testicular pain Urge incontinence Varicocele Patient Survey You may receive a survey via text or e-mail asking about your office visit. Please share your experience with us by completing your survey. We appreciate your feedback and thank you for choosing us for your care. Education Materials Hydrocele, Adult A hydrocele is a collection of fluid in the loose pouch of skin that holds the testicles (scrotum). It can occur in one or both testicles. This may happen because: ??? The amount of fluid produced in the scrotum is not absorbed by the rest of the body. ??? Fluid from the abdomen fills the scrotum. Normally, the testicles develop in the abdomen and then drop into the scrotum before . The tube that the testicles travel through usually closes after the testicles drop. If the tube does not close, fluid from the abdomen can fill the scrotum. This is not very common in adults. What are the causes? A hydrocele may be caused by: ??? An injury to the scrotum. ??? An infection. ??? Decreased blood flow to the scrotum. ??? Twisting of a testicle (testicular torsion). ??? A defect. ??? A tumor or cancer of the testicle. Sometimes, the cause is not known. What are the signs or symptoms? A hydrocele feels like a water-filled balloon. It may also feel heavy. Other symptoms include: ??? Swelling of the scrotum. The swelling may decrease when you lie down. You may also notice more swelling at night than in the morning. This is called a communicating hydrocele, in which the fluid in the scrotum goes back into the abdominal cavity when the position of the scrotum changes. ??? Swelling of the groin. ??? Mild discomfort in the scrotum. ??? Pain. This can develop if the hydrocele was caused by infection or twisting. The larger the hydrocele, the more likely you are to have pain. Swelling may also cause pain. How is this diagnosed? This condition may be diagnosed based on a physical exam and your medical history. You may also have tests, including: ??? Imaging tests, such as an ultrasound. ??? A transillumination test. This test takes place in a dark room where a light is placed on the skin of the scrotum. Clear liquid will not impede the light and the scrotum will be illuminated. This helps a health care provider distinguish a hydrocele from a tumor. ??? Blood or urine tests. How is this treated? Most hydroceles go away on their own. If you have no discomfort or pain, your health care provider may suggest close monitoring of your condition until the condition goes away or symptoms develop. This is called watch and wait or watchful waiting. If treatment is needed, it may include: ??? Treating an underlying condition. This may include taking an antibiotic medicine to treat an infection. ??? Having surgery to stop fluid from collecting in the scrotum. ??? Having surgery to drain t (more content not included)... Normal [facility] Urology Office/Clinic Noteon 07-27-2024 Urology Office/Clinic Note Urology Office/Clinic Note Chief Complaint hospital f/u HPI Staff New pt here for f/u to [facility] ER visit. Pt says symptoms are improving. Continues to have pain and swelling. Last seen IO 10/24/19 by JUDIE, dx: BPH with urinary obstruction, testicular pain, radiculopathy. [facility] ER 07/11/24 due to testicular pain L>R and swollen scrotum. PRW was consulted and was in agreement with giving the pt a course of Levaquin. CT AP w con and Scrotal US were done. [facility] ER again 07/19/24 due to continued pain and swelling. PCP had given him Keflex after the Levaquin and Tramadol for pain. Dysuria: denies Incomplete bladder emptying: yes Hematuria: denies Frequency: 2x per hour Urgency: sometimes Nocturia: 1x per night Stream: varies Leaking: sometimes during the day Post void dripping: yes Wearing pads/ Depends: denies Urge incontinence:denies Stress incontinence:denies Incontinence without Sensory Awareness: denies Abdominal pain: denies Flank pain:denies Sexual complaints: History of Present Illness Tests reviewed: reviewed UA, labs, ER records, CT, scrotal US, external records. I have reviewed the previous health record information and history for this patient from Dr. Malagon and external provider. I have reviewed and verified the staff HPI to be accurate for this encounter. There have been no associated fever, chills, flank pain, or blood in the urine. Denies any urinary infections since last encounter. Review of Systems PHQ Score Initial Depression Screen Score: 3 SCORE Detailed Depression Screen Score: 8 Total Depression Screen Score: 11 ROS - Provider Constitutional: denies weight loss, denies hot flashes. Eyes: denies eye problems. Gastrointestinal: denies nausea, denies vomiting. Cardiovascular: denies chest pain or angina. Integumentary: no dryness Musculoskeletal: denies musculoskeletal symptoms. ENMT: denies otolaryngeal symptoms. Respiratory: no shortness of breath. Heme/Lymph: denies easy bleeding tendency, denies easy bruising tendency. Psychiatric: no confusion, no anxiety. Genitourinary: See HPI. Physical Exam Vitals & Measurements T: 37 ???C(Oral) HR: 84(Peripheral) RR: 18 BP: 110/78 HT: 70 in HT: 178 cm WT: 102.8 kg WT: 226.635 lb BMI: 32.45 General Appearance: alert, no distress, well nourished, well developed male. Genitourinary: R testicle minimal hydrocele, normal exam. Left testicle mod-large tense hydrocele, cannot palpate testicle or epididymis. Assessment/Plan Prior Dr. Malagon pt 2019. 1. Hydrocele (N43.3: Hydrocele, unspecified) Pt presented to [facility] ER 07/11/24 due to testicular pain, L > R and swollen scrotum. CT AP w con 07/11/24 [facility] - small right and moderate left hydrocele. Left varicocele. Scrotal US 07/11/24 [facility] - small to mod sized left hydrocele with some internal hemorrhage or debris and possible thin internal septation. Sequela of prior trauma or prior infection. Dr. Douglass consulted. Pt treated with course of Levaquin. Pt later presented back to [facility] ER 07/19/24 due to ongoing pain and swelling. Primary care treated with Keflex and Tramadol. Still taking both, has one more day of Keflex. Pt reports he has improved by 80%. Advised pt that the origin of his diagnosis is his prostate. Will extend ATB course. Physical exam ~R testicle minimal hydrocele, normal exam. Left testicle mod-large tense hydrocele, cannot palpate testicle or epididymis. -Extend Keflex 500mg bid x 2 mos -F/up in 4 mos 2. Prostatitis (N41.9: Inflammatory disease of prostate, unspecified) See #1. 3. BPH with urinary obstruction (N40.1: Benign prostatic hyperplasia with lower urinary tract symptoms) PSA 09/22/19 - 0.5 No recent PSA on file. PVR 10/24/19 - 176 mL. UA today negative for infection or blood. Pt was started on Flomax by Dr. Malagon 2019 however states he did not start this. IPSS 5. Reports he has sudden urges to urinate however he does not have any output. Recommended starting the alpha-john. Counseled pt on possible side effects. -Timed voids -Start Flomax 0.4mg bid -PSA prior to next visit 4. 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 Left varicocele. Follow-up With When Contact Information CHRISTINA LAMA, Corey Khan, URL [address] [id number]- Additional Instructions: 4 mos w/ PSA Patient Education Hydrocele, Adult I, Iona Guajardo, personally scribed for Dr. Douglass on 07/27/2024 10:00:28. . Documentation recorded by the scribeIona, accurately reflects the services(s) I performed and decisions made by me. Authenticated by Dr. Douglass on 07/27/2024 10:02:38. Problem List/Past Medical History Ongoing Arthritis Back pain BPH with urinary obstruction Depression Head injury Headache Hydrocele Neuropathy Prostatitis Smoker Stress incontinence of urin (more content not included)... Normal [facility] Comment on above: Result Comment: Elec tronically Signed By: Corey DOUGLASS MD\.br\Date and Time Signed: 07/27/24 10:02 EST\.br\Electronically Co-Signed By: Iona Guajardo.br\Date and Time Co-Signed: 07/27/24 10:00 EST CHEMISTRYOrdered By: SYSTEM SYSTEM on 09-18-2022 Amphetamines Screen method >1000 ng/mL Ql (U) Positive 2 *ABN* (09/18/22 11:30 AM) Invalid Interpretation Code Negative [facility] Remisol Comment on above: Result Comment: Crit ical Result verified by repeat analysis\No confirmation requested by Physican\Unconfirmed by alternate method\Critical Result UD_AMPH:POS Called to COURTNEY DUBON AT 2N by MANNY BARCENAS And Read Back For Confirmation at: 09/18/2022 12:33:43 Barbiturates Screen Ql (U) Negative (09/18/22 11:30 AM) Normal Negative [facility] Benzodiazepines Ql (U) Negative (09/18/22 11:30 AM) Normal Negative [facility] Cocaine Ql (U) Negative (09/18/22 11:30 AM) Normal Negative [facility] Opiates Screen Ql (U) Negative (09/18/22 11:30 AM) Normal Negative [facility] Phencyclidine Screen method >25 ng/mL Ql (U) Negative (09/18/22 11:30 AM) Normal Negative [facility] Tetrahydrocannabinol Screen method >50 ng/mL Ql (U) Positive 1 *ABN* (09/18/22 11:30 AM) Invalid Interpretation Code Negative [facility] Comment on above: Result Comment: Crit ical Result UD_THC:POS Called to COURTNEY DUBON AT 2N by MANNY BARCENAS And Read Back For Confirmation at: 09/18/2022 12:33:43\Critical Result verified by repeat analysis\No confirmation requested by Physican\Unconfirmed by alternate method Cholesterol [Mass/Vol] 153 mg/dL Normal 120 - 200 mg/dL [facility] Cholesterol in HDL [Mass/Vol] 33 mg/dL Invalid Interpretation Code [facility] Cholesterol in LDL [Mass/Vol] 76 mg/dL Normal <=129mg/dL [facility] Cholesterol in VLDL [Mass/Vol] 50 mg/dL High 7 - 40 mg/dL [facility] Triglyceride [Mass/Vol] 251 mg/dL High <=149mg/dL [facility] CHEMISTRYOrdered By: Audrey mcrae on 09-18-2022 HbA1c (Bld) [Mass fraction] 5.4 % Normal <=5.9% [facility] ChemAutoSS URINALYSISOrdered By: Audrey Nuno on 09-18-2022 Bilirubin Ql (U) Negative (09/18/22 11:30 AM) Normal Negative [facility] UA Auto SS Clarity (U) Clear (09/18/22 11:30 AM) Normal Clear [facility] UA Auto SS Color (U) Yellow (09/18/22 11:30 AM) Normal Yellow [facility] UA Auto SS Epithelial cells.squamous LM.HPF (Urine sed) [#/Area] 0-2 /HPF Normal 0-2/HPF [facility] UA Aut o SS Glucose Test strip (U) [Mass/Vol] Negative (09/18/22 11:30 AM) Normal Negative [facility] UA Auto SS Hemoglobin Ql (U) Negative (09/18/22 11:30 AM) Normal Negative [facility] UA Auto SS Ketones (U) [Mass/Vol] Negative (09/18/22 11:30 AM) Normal Negative [facility] UA Auto SS [place].plasma/[place]. RBC (Bld) [Mass ratio] 0-3 /HPF Normal 0-3/HPF [facility] UA A uto SS Nitrite Ql (U) Negative (09/18/22 11:30 AM) Normal Negative [facility] UA Auto SS pH (U) 7.0 *NA* (09/18/22 11:30 AM) Invalid Interpretation Code 5.0 - 9.0 [facility] UA Auto SS Protein (U) [Mass/Vol] Negative (09/18/22 11:30 AM) Normal Negative [facility] UA Auto SS Specific gravity (U) [Rel density] 1.020 *NA* (09/18/22 11:30 AM) Invalid Interpretation Code 1.005 - 1.030 [facility] UA Auto SS UA Spec Desc Clean Catch (09/18/22 11:30 AM) Normal [facility] UA Auto SS Urobilinogen Qn (U) 0.5239721 {Linsey'U}/dL Normal 0.0 - 1.0 EU/dL [facility] UA Auto SS WBC Auto Ql (U) Negative (09/18/22 11:30 AM) Normal Negative [facility] UA Auto SS WBC LM.HPF (Urine sed) [#/Area] 0-5 /HPF Normal 0-5/HPF [facility] UA Auto SS CHEMISTRYOrdered By: SYSTEM SYSTEM on 09-17-2022 Anion gap [Moles/Vol] 12 mmol/L Normal 6 - 16 mEq/L [facility] Calcium [Mass/Vol] 8.2 mg/dL Low 8.9 - 11. 1 mg/dL [facility] Remisol Chloride [Moles/Vol] 103 mmol/L Normal 101 - 1 11 mmol/L [facility] Remisol CO2 [Moles/Vol] 26 mmol/L Normal 21 - 31 mmol/L [facility] Creatinine [Mass/Vol] 1.0 mg/dL Normal 0.5 - 1.3 mg/dL [facility] Remisol GFR/1.73 sq M.predicted among blacks MDRD (S/P/Bld) [Vol rate/Area] mL/min/1.73 m2 Normal >=59mL/min/1 .73 m2 [facility] Chem S GFR/1.73 sq M.predicted among non-blacks MDRD (S/P/Bld) [Vol rate/Area] mL/min/1.73 m2 Normal >=59mL/min/1 .73 m2 [facility] Chem S Glucose [Mass/Vol] 108 mg/dL Normal 55 - 199 mg/dL [facility] Remisol Potassium [Moles/Vol] 3.6 mmol/L Normal 3.5 - 5.3 mmol/L [facility] Remisol Sodium [Moles/Vol] 137 mmol/L Normal 135 - 145 mmol/L [facility] Remisol Troponin I.cardiac [Mass/Vol] 3.90 pg/mL Low 15.90 - 38.40 pg/mL [facility] Remisol Urea nitrogen [Mass/Vol] 11 mg/dL Normal 5 - 21 mg/dL [facility] Remisol Urea nitrogen/Creatinine [Mass ratio] 11 mg/mg Normal 10 - 20 [facility] Remisol CHEMISTRYOrdered By: Lab ROP User on 09-17-2022 Glucose [Mass/Vol] 98 mg/dL Normal 55 - 99 mg/dL FT POC Subsection Comment on above: Result Comment: Jaguar aranda RN/MD POC Device SN [id number] Invalid Interpretation Code [facility] POC Subsection POC User ID [id number] Invalid Interpretation Code FT POC Subsection POC Username VERONICA CABAN Invalid Interpretation Code [facility] POC Subsection COAGULATIONOrdered By: Malini Montanez on 09-17-2022 aPTT Coag (PPP) [Time] 35.1 s Normal 25.1 - 36.5 second(s) [facility] Auto Coag INR Coag (PPP) [Relative time] 1.1 {INR} Invalid Interpretation Code [facility] Auto Coag PT Coag (PPP) [Time] 12.5 s Normal 9.4 - 1 2.5 second(s) [facility] Auto Coag HEMATOLOGYOrdered By: SYSTEM SYSTEM on 09-17-2022 Basophils/100 WBC (Bld) 0.9 % Normal 0.0 - 2.0 % [facility] HemeAutoSS Basophils/Leukocytes Auto (Bld) [Pure # fraction] 0.1 E9/L Normal 0.0 - 0.2 E9/L [facility] HemeAutoSS Eosinophils/100 WBC (Bld) 1.3 % Normal 0.0 - 8.0 % [facility] HemeAutoSS Eosinophils/Leukocytes Auto (Bld) [Pure # fraction] 0.1 E9/L Normal 0.0 - 0.5 E9/L [facility] HemeAutoSS Lymphocytes/100 WBC (Bld) 31.6 % Normal 14.0 - 50.0 % [facility] HemeAutoSS Lymphocytes/Leukocytes Auto (Bld) [Pure # fraction] 1.9 E9/L Normal 1.0 - 4.0 E9/L [facility] HemeAutoSS Monocytes/100 WBC (Bld) 9.8 % Normal 4.0 - 14.0 % [facility] HemeAutoSS Monocytes/Leukocytes Auto (Bld) [Pure # fraction] 0.6 E9/L Normal 0.2 - 1.0 E9/L [facility] HemeAutoSS Neutrophils/100 WBC (Bld) 56.4 % Normal 36.0 - 75.0 % [facility] HemeAutoSS Neutrophils/Leukocytes Auto (Bld) [Pure # fraction] 3.5 E9/L Normal 2.0 - 7.5 E9/L [facility] HemeAutoSS HEMATOLOGYOrdered By: Fabian Dodson on 09-17-2022 Erythrocyte distribution width (RBC) [Ratio] 14.0 % Normal 10.9 - 14.2 % [facility] HemeAutoSS Hematocrit (Bld) [Volume fraction] 45.3 % Normal 37.7 - 49.0 % [facility] HemeAutoSS Hemoglobin (Bld) [Mass/Vol] 15.2 g/dL Normal 13.5 - 17.5 gm/dL [facility] HemeAutoSS MCH (RBC) [Entitic mass] 28.7 pg Normal 27.0 - 34.0 pg [facility] HemeAutoSS MCHC (RBC) [Mass/Vol] 33.7 g/dL Normal 31.4 - 36.0 gm/dL [facility] HemeAutoSS MCV (RBC) [Entitic vol] 85.1 fL Normal 80.0 - 100.0 fL [facility] HemeAutoSS Platelet mean volume (Bld) [Entitic vol] 8.5 fL Normal 6.4 - 10.8 fL [facility] HemeAutoSS Platelets (Bld) [#/Vol] 191.0 E9/L Normal 150. 0 - 500.0 E9/L [facility] HemeAutoSS RBC (Bld) [#/Vol] 5.3 E12/L Normal 4.3 - 5.9 E12/L [facility] HemeAutoSS WBC corrected for nucl RBC Auto (Bld) [#/Vol] 6.1 E9/L Normal 4.0 - 11.0 E9/L [facility] HemeAutoSS ER URINE PROFILEon 2 Bilirubin Ql (U) Negative Normal NEGATIVE [facility] Comment on above: Performed By: #### E RUR #### [facility] [address] [place] [address] Dr. Dinah Nicolas Clarity (U) CLEAR Normal CLEAR [facility] Comment on above: Performed By: #### E RUR #### [facility] [address] [address] [address] Dinah Nicolas Color (U) LT. YELLOW Normal YELLOW [facility] Comment on above: Performed By: #### E RUR #### [facility] [address] [address] [address] Dinah Nicolas ERUAHD A micrscopic examination will be performed if indicated. Normal [facility] Comment on above: Performed By: #### E RUR #### [facility] [address] [place] [address] Dr. Dinah Nicolas Glucose Ql (U) Negative Normal NEGATIVE [facility] Comment on above: Performed By: #### E RUR #### [facility] [address] [place] [address] Dr. Dinah Nicolas Hemoglobin Ql (U) Negative Normal NEGATIVE [facility] Comment on above: Performed By: #### E RUR #### [facility] [address] [place] [address] Dr. Dinah Nicolas Ketones Ql (U) Negative Normal NEGATIVE [facility] Comment on above: Performed By: #### E RUR #### [facility] [address] [place] [address] Dr. Dinah Nicolas LEUKOCYTES Negative Normal NEGATIVE [facility] Comment on above: Performed By: #### E RUR #### [facility] [address] [place] [address] Dr. Dinah Nicolas Nitrite Ql (U) Negative Normal NEGATIVE [facility] Comment on above: Performed By: #### E RUR #### [facility] [address] [place] [address] Dr. Dinah Nicolas pH (U) 6.0 [pH] Normal 5-9 [facility] Comment on above: Performed By: #### E RUR #### [facility] [address] [place] [address] Dr. Dinah Nicolas SPEC GRAVITY 1.025 Normal 1.005-<=1.02 5 [facility] Comment on above: Performed By: #### E RUR #### [facility] [address] [place] [address] Dr. Dinah Nicolas UA PROTEIN Negative Normal NEGATIVE/ TRACE [facility] Comment on above: Performed By: #### E RUR #### [facility] [address] [place] [address] Dr. Dinah Nicolas UR MICRO IND NOT INDICATED Normal [facility] Comment on above: Performed By: #### E RUR #### [facility] [address] [place] [address] Dr. Dinah Nicolas Urobilinogen Qn (U) 0.2 {Linsey'U}/dL Normal 0.2 - 1. 0 [facility] Comment on above: Performed By: #### E RUR #### [facility] [address] [place] [address] Dr. Dinah Nicolas CBC AUTO DIFFon 02-03-2022 BASO # 0.1 103/ul Normal 0.0-0.1 [facility] Comment on above: Performed By: #### C BC #### [facility] [address] [place] [address] Dr. Dinah Nicolas Basophils/100 WBC (Bld) 1.1 % Normal 0.2-2.0 [facility] Comment on above: Performed By: #### C BC #### [facility] [address] [place] [address] Dr. Dinah Nicolas EO # 0.1 103/ul Normal 0.0-0.7 [facility] Comment on above: Performed By: #### C BC #### [facility] [address] [place] [address] Dr. Dinah Nicolas Eosinophils/100 WBC (Bld) 1.4 % Normal 0.9-7.0 [facility] Comment on above: Performed By: #### C BC #### [facility] [address] [place] [address] Dr. Dinah Nicolas Erythrocyte distribution width (RBC) [Ratio] 13.0 % Normal 11.0-15.0 [facility] Comment on above: Performed By: #### C BC #### [facility] [address] [place] [address] Dr. Dinah Nicolas Hematocrit (Bld) [Volume fraction] 42.6 % Normal 42.0-54.0 [facility] Comment on above: Performed By: #### C BC #### [facility] [address] [place] [address] Dr. Dinah Nicolas Hemoglobin (Bld) [Mass/Vol] 14.8 g/dL Normal 14.0-18.0 [facility] Comment on above: Performed By: #### C BC #### [facility] [address] [place] [address] Dr. Dinah Nicolas IG # 0.02 10e3/ul Normal 0.00-0.03 [facility] Comment on above: Performed By: #### C BC #### [facility] [address] [place] [address] Dr. Dinah Nicolas IG % 0.3 % Normal 0.0-0.5 [facility] Comment on above: Performed By: #### C BC #### [facility] [address] [place] [address] Dr. Dinah Nicolas LYMPH # 2.1 103/ul Normal 1.2-3.8 [facility] Comment on above: Performed By: #### C BC #### [facility] [address] [place] [address] Dr. Dinah Nicolas Lymphocytes/100 WBC (Bld) 32.7 % Normal 20.5-60.0 [facility] Comment on above: Performed By: #### C BC #### [facility] [address] [place] [address] Dr. Dinah Nicolas MANUAL DIFF REQ NO Normal [facility] Comment on above: Performed By: #### C BC #### [facility] [address] [place] [address] Dr. Dinah Nicolas MCH (RBC) [Entitic mass] 29.7 pg Normal 25.9-34.0 [facility] Comment on above: Performed By: #### C BC #### [facility] [address] [place] [address] Dr. Dinah Nicolas MCHC (RBC) [Mass/Vol] 34.7 g/dL Normal 29.9-35.2 [facility] Comment on above: Performed By: #### C BC #### [facility] [address] [place] [address] Dr. Dinah Nicolas MCV (RBC) [Entitic vol] 85.5 fL Normal 80.0-94.0 [facility] Comment on above: Performed By: #### C BC #### [facility] [address] [address] [address] Dinah Nicolas MONO # 0.6 103/ul Normal 0.3-0.8 [facility] Comment on above: Performed By: #### C BC #### [facility] [address] [address] [address] Dinah Nicolas Monocytes/100 WBC (Bld) 8.6 % Normal 1.7-12.0 [facility] Comment on above: Performed By: #### C BC #### [facility] [address] [place] [address] Dr. Dinah Nicolas NEUT # 3.7 103/ul Normal 1.4-6.5 [facility] Comment on above: Performed By: #### C BC #### [facility] [address] [place] [address] Dr. Dinah Nicolas Neutrophils/100 WBC (Bld) 55.9 % Normal 43.0-75.0 [facility] Comment on above: Performed By: #### C BC #### [facility] [address] [place] [address] Dr. Dinah Nicolas Platelet mean volume (Bld) [Entitic vol] 10.0 fL Normal 9.5-13.5 [facility] Comment on above: Performed By: #### C BC #### [facility] [address] [place] [address] Dr. Dinah Nicolas PLT 188 103/ul Normal 150-450 [facility] Comment on above: Performed By: #### C BC #### [facility] [address] [place] [address] Dr. Dinah Nicolas RBC 4.98 106/ul Normal 4.70-6.10 [facility] Comment on above: Performed By: #### C BC #### [facility] [address] [place] [address] Dr. Dinah Nicolas WBC 6.5 103/ul Normal 4.0-11.0 [facility] Comment on above: Performed By: #### C BC #### [facility] [address] [address] [address] Dinah Nicolas PROF CHEM 8 (BAS METB)on Anion gap [Moles/Vol] 11.8 mmol/L Normal [facility] Comment on above: Performed By: #### B MP #### [facility] [address] [place] [address] Dr. Dinah Nicolas Calcium [Mass/Vol] 8.6 mg/dL Normal 8.5-10.1 [facility] Comment on above: Performed By: #### B MP #### [facility] [address] [place] [address] Dr. Dinah Nicolas Chloride [Moles/Vol] 105 mmol/L Normal 98-107 [facility] Comment on above: Performed By: #### B MP #### [facility] [address] [place] [address] Dr. Dinah Nicolas CO2 [Moles/Vol] 27.5 mmol/L Normal 21.0-32.0 [facility] Comment on above: Performed By: #### B MP #### [facility] [address] [place] [address] Dr. Dinah Nicolas Creatinine [Mass/Vol] 1.00 mg/dL Normal 0.70-1.30 [facility] Comment on above: Performed By: #### B MP #### [facility] [address] [place] [address] Dr. Dinah Nicolas EGFR-AF UZBEK >60 Normal >=60 [facility] Comment on above: Performed By: #### B MP #### [facility] [address] [place] [address] Dr. Dinah Nicolas EGFR-NON AF UZBEK >60 Normal >=60 [facility] Comment on above: Performed By: #### B MP #### [facility] [address] [place] [address] Dr. Dinah Nicolas Glucose [Mass/Vol] 118 mg/dL Critically high 74-106 [facility] Comment on above: Performed By: #### B MP #### [facility] [address] [place] [address] Dr. Dinah Nicolas Potassium [Moles/Vol] 3.3 mmol/L Critically low 3.5-5.1 [facility] Comment on above: Performed By: #### B MP #### [facility] [address] [address] [address] Dinah Nicolas Sodium [Moles/Vol] 141 mmol/L Normal 136-145 [facility] Comment on above: Performed By: #### B MP #### [facility] [address] [address] [address] Dinah Nicolas Urea nitrogen [Mass/Vol] 12.0 mg/dL Normal 7.0-18.0 [facility] Comment on above: Performed By: #### B MP #### [facility] [address] [address] [address] Dinah Nicolas Urea nitrogen/Creatinine [Mass ratio] 12.0 mg/mg Normal [facility] Comment on above: Performed By: #### B MP #### [facility] [address] [address] [address] Dinah Nicolas Covid-19 PCR (CVDTB)on SARS-CoV-2 (COVID-19) RNA TORRIE+probe Ql (Unsp spec) Not detected Normal NOT DETECTED [facility] Comment on above: Result Comment: This test is not yet approved or cleared by the [place] FDA. When there are no FDA-approved or cleared tests available, and other criteria are met, FDA can make tests available under an emergency access mechanism called an Emergency Use Authorization (EUA). The EUA for this test is supported by the [place] of Health and Human Service's (HHS's) declaration that circumstances exist to justify the emergency use of in vitro diagnostics for the detection and/or diagnosis of the virus that causes COVID-19. This EUA will remain in effect (meaning this test can be used) for the duration of the COVID-19 declaration justifying emergency of IVDs, unless it is terminated or revoked by FDA (after which the test may no longer be used). When diagnostic testing is negative, the possibility of a false negative should be considered in the context of a patient's recent exposures and the presence of clinical signs and symptoms consistent with SARS-CoV-2. Performed By: #### C TB #### [facility] [address] [place] [address] Dr. Dinah Nicolas Vital Signs Date Time Vital Sign Value Performing Clinician Facility 07-27-2024 09:26-0500 Blood Pressure Location Corey DOUGLASS [facility] 07-27-2024 09:26-0500 Body temperature 98.6 [degF] Coreyrenato DOUGLASS [facility] 07-27-2024 09:26-0500 Diastolic blood pressure 78 mm[Hg] Corey DOUGLASS [facility] 07-27-2024 09:26-0500 Heart rate 84 /min Coreyrenato DOUGLASS [facility] 07-27-2024 09:26-0500 Respiratory rate 18 /min Corey DOUGLASS [facility] 07-27-2024 09:26-0500 Systolic blood pressure 110 mm[Hg] Corey DOUGLASS [facility] 09-19-2022 10:00-0500 Hourly Rounding Jose Green [facility] 09-19-2022 10:00-0500 Promise to Return Jose Green [facility] 09-19-2022 09:00-0500 Hourly Rounding Jose Booneidaa [facility] 09-19-2022 09:00-0500 Promise to Return Jose Booneidaa [facility] 09-19-2022 08:00-0500 Hourly Rounding Jose Booneidaa [facility] 09-19-2022 08:00-0500 Promise to Return Jose Green [facility] 09-19-2022 07:52-0500 Heart rate 75 /min Jose Booneidaa [facility] 09-19-2022 07:52-0500 SaO2% (BldA) [Mass fraction] 97 % Jose Booneidaa [facility] 09-19-2022 07:51-0500 Diastolic blood pressure 77 mm[Hg] Jose Booneidaa [facility] 09-19-2022 07:51-0500 Mean blood pressure 89 mm[Hg] Jose Booneidaa [facility] 09-19-2022 07:51-0500 Systolic blood pressure 111 mm[Hg] Jose Booneidaa [facility] 09-19-2022 07:51-0500 Body temperature 98.06 [degF] Jose Booneidaa [facility] 09-19-2022 00:20-0500 Body temperature 98.06 [degF] Jose Booneidaa [facility] 09-19-2022 00:20-0500 Diastolic blood pressure 72 mm[Hg] Jose Booneidaa [facility] 09-19-2022 00:20-0500 Heart rate 75 /min Jose Booneidaa [facility] 09-19-2022 00:20-0500 Respiratory rate 16 /min Jose Booneidaa [facility] 09-19-2022 00:20-0500 SaO2% (BldA) [Mass fraction] 96 % Jose Booneidaa [facility] 09-19-2022 00:20-0500 Systolic blood pressure 125 mm[Hg] Jose Paoloidaa [facility] 09-18-2022 20:07-0500 Heart rate 67 /min Jose Arguetaa [facility] 09-18-2022 20:07-0500 SaO2% (BldA) [Mass fraction] 99 % Jose Green [facility] 09-18-2022 20:07-0500 Diastolic blood pressure 76 mm[Hg] Jose Green [facility] 09-18-2022 20:07-0500 Mean blood pressure 87 mm[Hg] Jose Arguetaa [facility] 09-18-2022 20:07-0500 Systolic blood pressure 109 mm[Hg] Jose Green [facility] 09-18-2022 20:06-0500 Body temperature 97.52 [degF] Jose Booneidaa [facility] 09-18-2022 16:01-0500 Body temperature 97.52 [degF] Jose Booneidayon [facility] 09-18-2022 16:01-0500 Mean blood pressure 108 mm[Hg] Jose Arguetaa [facility] 09-18-2022 04:59-0500 Blood Pressure Location Jose Green [facility] 09-18-2022 04:59-0500 Body temperature 97.7 [degF] Jose Booneidaa [facility] 09-18-2022 04:59-0500 Heart rate 69 /min Jose Booneidaa [facility] 09-18-2022 04:59-0500 Mean blood pressure 69 mm[Hg] Jose Booneidaa [facility] 09-18-2022 04:59-0500 Respiratory rate 17 /min Jose Maidaa [facility] 09-18-2022 00:53-0500 Blood Pressure Location Jose Maidaa [facility] 09-18-2022 00:53-0500 Heart rate 82 /min Jose Maidaa [facility] 09-18-2022 00:53-0500 Respiratory rate 16 /min Jose Maidaa [facility] 09-17-2022 21:30-0500 Mean blood pressure 93 mm[Hg] Jose Maidaa [facility] 09-17-2022 21:30-0500 Respiratory rate 20 /min Jose Maidaa [facility] 09-17-2022 21:00-0500 Mean blood pressure 97 mm[Hg] Jose Maidaa [facility] 09-17-2022 21:00-0500 Respiratory rate 19 /min Jose Maidaa [facility] 09-17-2022 20:30-0500 Respiratory rate 18 /min Jose Maidaa [facility] 09-17-2022 19:26-0500 gluc 98 mg/dL Jose Maidaa [facility] 09-17-2022 19:26-0500 gluc Jose Maidaa [facility] 09-17-2022 18:54-0500 Heart rate 87 /min Jose Maidaa [facility] Encounters Encounter Date Encounter Type Care Provider Facility Start: 11-26-2024 ambulatory Corey Rai ty:[facility] Start: 07-27-2024 End: 07-27-2024 ambulatory Corey DOUGLASS Facility:[facility] Start: 07-27-2024 End: 07-27-2024 Patient encounter procedure Corey Bill CHRISTINA [facility] Start: 07-12-2024 ambulatory Corey DOUGLASS Facili ty:[facility] Start: 09-17-2022 End: 09-19-2022 Observation Jose Green [facility] Start: 02-03-2022 End: 02-04-[address] OLIVERIO TREADWELL Facility:[facility] Start: 07-07-2021 End: 07-07-[address] ROMAINE PALOMO Facility:[facility] Start: 05-12-2021 End: 05-12-[address] OLIVERIO TREADWELL Facility:[facility] Start: 04-21-2021 End: 04-22-[address] KELLY MADRIGAL Facility:[facility] Procedures Date Procedure Procedure Detail Performing Clinician Start: 01-06-2019 Repair of inguinal hernia Jose Green Colonoscopy Jose Arguetaoyn Immunizations Immunization Date Immunization Notes Care Provider Fa [facility] 12-30-2020 SARS-CoV-2 (COVID-19 ) mRNA-1273 vaccine Corey DOUGLASS [facility] 12-03-2020 SARS-CoV-2 (COVID-19 ) mRNA-1273 vaccine Corey DOUGLASS [facility] Payers Date Payer Category Payer Private Health Insurance [id number] 1970 Unknown [id number] [id number] [id number] 1970 Unknown [id number] 1968 Unknown [id number] .16.84 [id number] 1968 Unknown [id number] 2.16.84 [id number] 1968 Unknown [id number] 2.16.8 [id number] 1968 Unknown [id number] 2.16.8 [id number] 1968 Unknown [id number] 2.16.8 [id number] 1961 Private Health Insurance [id number] Social History Date Type Detail Facility Start: 12-07-2020 Tobacco smoking status Light t obacco smoker (finding) [facility] Sex Assigned At Male [facility] Start: 07-27-2024 Tobacco smoking status Ex-smoker (fi nding) [facility] Tobacco smoking status Never [facility] Functional Status Date Assessment Result Facility 07-27-2024 Functional Status N/A [facility] 09-18-2022 Functional Status No [facility] 09-17-2022 Functional Status [facility] Hospital Discharge instructions 07-27-2024 Note Date & Type Note Facility 07-27-2024 Hospital Discharge instructions Patient Education 07/27/2024 09:51:55 Hydrocele, Adult Hydrocele, Adult A hydrocele is a collection of fluid in the loose pouch of skin that holds the testicles (scrotum). It can occur in one or both testicles. This may happen because: The amount of fluid produced in the scrotum is not absorbed by the rest of the body. Fluid from the abdomen fills the scrotum. Normally, the testicles develop in the abdomen and then drop into the scrotum before . The tube that the testicles travel through usually closes after the testicles drop. If the tube does not close, fluid from the abdomen can fill the scrotum. This is not very common in adults. What are the causes? A hydrocele may be caused by: An injury to the scrotum. An infection. Decreased blood flow to the scrotum. Twisting of a testicle (testicular torsion). A defect. A tumor or cancer of the testicle. Sometimes, the cause is not known. What are the signs or symptoms? A hydrocele feels like a water-filled balloon. It may also feel heavy. Other symptoms include: Swelling of the scrotum. The swelling may decrease when you lie down. You may also notice more swelling at night than in the morning. This is called a communicating hydrocele, in which the fluid in the scrotum goes back into the abdominal cavity when the position of the scrotum changes. Swelling of the groin. Mild discomfort in the scrotum. Pain. This can develop if the hydrocele was caused by infection or twisting. The larger the hydrocele, the more likely you are to have pain. Swelling may also cause pain. How is this diagnosed? This condition may be diagnosed based on a physical exam and your medical history. You may also have tests, including: Imaging tests, such as an ultrasound. A transillumination test. This test takes place in a dark room where a light is placed on the skin of the scrotum. Clear liquid will not impede the light and the scrotum will be illuminated. This helps a health care provider distinguish a hydrocele from a tumor. Blood or urine tests. How is this treated? Most hydroceles go away on their own. If you have no discomfort or pain, your health care provider may suggest close monitoring of your condition until the condition goes away or symptoms develop. This is called watch and wait or watchful waiting. If treatment is needed, it may include: Treating an underlying condition. This may include taking an antibiotic medicine to treat an infection. Having surgery to stop fluid from collecting in the scrotum. Having surgery to drain the fluid. Surgery may include: ?Hydrocelectomy. For this procedure, an incision is made in the scrotum to remove the fluid. ?Needle aspiration. A needle is used to drain fluid. However, the fluid buildup will come back quickly and may lead to an infection of the scrotum. This is rarely done. Follow these instructions at home: Medicines Take [id number] and prescription medicines only as told by your health care provider. If you were prescribed an antibiotic medicine, take it as told by your health care provider. Do not stop taking the antibiotic even if you start to feel better. General instructions Watch the hydrocele for any changes. Keep all follow-up visits. This is important. Contact a health care provider if: You notice any changes in the hydrocele. The swelling in your scrotum or groin gets worse. The hydrocele becomes red, firm, painful, or tender to the touch. You have a fever. Get help right away if you: Develop a lot of pain or your pain becomes worse. Have chills. Have a high fever. Summary A hydrocele is a collection of fluid in the loose pouch of skin that holds the testicles (scrotum). A hydrocele can cause swelling, discomfort, and pain. In adults, the cause of a hydrocele may not be known. However, it is sometimes caused by an infection or the twisting of a testicle. Hydroceles often go away on their own. If a hydrocele causes pain, treating the underlying cause may be needed to ease the pain. This information is not intended to replace advice given to you by your health care provider. Make sure you discuss any questions you have with your health care provider. Document Revised: 03/11/2022 Document Reviewed: 03/11/2022 [employer] Patient Education 2023 [employer]. Follow Up Care 07/12/2024 10:44:12 With:CHRISTINA ALMA, Corey Khan, URL Address: [address] [place], [place] [id number]- When: Unknown [facility] Clinical Note 07-27-2024 Note Date & Type Note Facility 07-27-2024 Note Patient Education Urology Hydrocele, Adult A hydrocele is a collection of fluid in the loose pouch of skin that holds the testicles (scrotum). It can occur in one or both testicles. This may happen because: ??? The amount of fluid produced in the scrotum is not absorbed by the rest of the body. ??? Fluid from the abdomen fills the scrotum. Normally, the testicles develop in the abdomen and then drop into the scrotum before . The tube that the testicles travel through usually closes after the testicles drop. If the tube does not close, fluid from the abdomen can fill the scrotum. This is not very common in adults. What are the causes? A hydrocele may be caused by: ??? An injury to the scrotum. ??? An infection. ??? Decreased blood flow to the scrotum. ??? Twisting of a testicle (testicular torsion). ??? A defect. ??? A tumor or cancer of the testicle. Sometimes, the cause is not known. What are the signs or symptoms? A hydrocele feels like a water-filled balloon. It may also feel heavy. Other symptoms include: ??? Swelling of the scrotum. The swelling may decrease when you lie down. You may also notice more swelling at night than in the morning. This is called a communicating hydrocele, in which the fluid in the scrotum goes back into the abdominal cavity when the position of the scrotum changes. ??? Swelling of the groin. ??? Mild discomfort in the scrotum. ??? Pain. This can develop if the hydrocele was caused by infection or twisting. The larger the hydrocele, the more likely you are to have pain. Swelling may also cause pain. How is this diagnosed? This condition may be diagnosed based on a physical exam and your medical history. You may also have tests, including: ??? Imaging tests, such as an ultrasound. ??? A transillumination test. This test takes place in a dark room where a light is placed on the skin of the scrotum. Clear liquid will not impede the light and the scrotum will be illuminated. This helps a health care provider distinguish a hydrocele from a tumor. ??? Blood or urine tests. How is this treated? Most hydroceles go away on their own. If you have no discomfort or pain, your health care provider may suggest close monitoring of your condition until the condition goes away or symptoms develop. This is called watch and wait or watchful waiting. If treatment is needed, it may include: ??? Treating an underlying condition. This may include taking an antibiotic medicine to treat an infection. ??? Having surgery to stop fluid from collecting in the scrotum. ??? Having surgery to drain the fluid. Surgery may include: ? Hydrocelectomy. For this procedure, an incision is made in the scrotum to remove the fluid. ? Needle aspiration. A needle is used to drain fluid. However, the fluid buildup will come back quickly and may lead to an infection of the scrotum. This is rarely done. Follow these instructions at home: Medicines ??? Take klrs-[id number] and prescription medicines only as told by your health care provider. ??? If you were prescribed an antibiotic medicine, take it as told by your health care provider. Do not stop taking the antibiotic even if you start to feel better. General instructions ??? Watch the hydrocele for any changes. ??? Keep all follow-up visits. This is important. Contact a health care provider if: ??? You notice any changes in the hydrocele. ??? The swelling in your scrotum or groin gets worse. ??? The hydrocele becomes red, firm, painful, or tender to the touch. ??? You have a fever. Get help right away if you: ??? Develop a lot of pain or your pain becomes worse. ??? Have chills. ??? Have a high fever. Summary ??? A hydrocele is a collection of fluid in the loose pouch of skin that holds the testicles (scrotum). ??? A hydrocele can cause swelling, discomfort, and pain. ??? In adults, the cause of a hydrocele may not be known. However, it is sometimes caused by an infection or the twisting of a testicle. ??? Hydroceles often go away on their own. If a hydrocele causes pain, treating the underlying cause may be needed to ease the pain. This information is not intended to replace advice given to you by your health care provider. Make sure you discuss any questions you have with your health care provider. Document Revised: 03/11/2022 Document Reviewed: 03/11/2022 [employer] Patient Education ? 2023 [employer]. [facility] Evaluation + Plan note 09-19-2022 Note Date & Type Note Facility 09-19-2022 Evaluation + Plan note Extrac ricardo from: Title:APSO Note- Neurology Author:Kailash Franklin RN Date:09/19/22 Reason for consult: Concern for stroke or syncope ASSESSMENT: 1. Episode of possible brief loss of consciousness seated in chair with transient convulsive type movements of the right upper extremity. He was excessively drowsy at the time and this may have simply been him dozing off with some parasomnia movements of the arm. Slept the rest of the day - amphetamine withdrawal (tox screen positive)? Could otherwise consider convulsive syncope. Suspicion for seizure is very low and routine EEG unremarkable. MRI brain and MRA studies unremarkable. 2. Subacute paresthesias and subjective sensory loss throughout the left upper extremity from the shoulder downward and no particular nerve or dermatomal distribution. Does not appear to be stroke or cervical radicular based on MR imaging of head and neck. 3. Moderate to severe cervical spinal stenosis at C6-7, noncompressive. Has mild hyperreflexia diffusely. PLAN: 1. Follow up in neurology clinic regarding left arm paresthesias and the cervical spinal stenosis 2. No other recommendations at this time 1. Stroke-like symptoms (R29.90: Unspecified symptoms and signs involving the nervous system) 2. Seizure-like activity (R56.9: Unspecified convulsions) 3. Neuropathy (G62.9: Polyneuropathy, unspecified) 4. Substance use (F19.90: Other psychoactive substance use, unspecified, uncomplicated) Extracted from: Title:APSO Note Author:Juancarlos HELTON Date:09/18/22 1. Stroke-like symptoms (R29 .90: Unspecified symptoms and signs involving the nervous system) Vague symptoms, CT Noncon brain was negative for any acute ischemic changes. Patient has allergies to IV contrast were not able to obtain a CTA. Carotid Dopplers <50-% stensosis. MRI/MRA head/neck w/o constrast d/t allergy -pending. Consult neurology-appreciated. EEG negative per . ASA Lipid panel. -elev Triglycerides. Add Atorvastatin educated on diet, exercise. 2. Seizure-like activity (R56.9: Unspecified convulsions) 3. Neuropathy (G62.9: Polyneuropathy, unspecified) In the past treated with Cutler and gabapentin, patient reported no improvement. Is not taking any medication at this moment 4. Substance use (F19.90: Other psychoactive substance use, unspecified, uncomplicated) -Pt tox screen revealed Amphetamines and cannabis use. However, pt denied when asked if he used any prior to results Will discuss with pt. Orders: atorvastatin, 20 mg = 1 tab(s), Tab, Oral, Bedtime, Routine, Start date 09/18/22 21:00:00 EST, 09/18/22 12:32:00 EST Extracted from: Title:Consult Note- Neurology Author:Rosalva Franklin RN Date:09/18/22 Reason for consult: Concern for stroke or syncope ASSESSMENT: 1. Episode of brief loss of consciousness seated in chair with some convulsive type movements of the right upper extremity. Convulsive syncope versus seizure. No clear reason for either. 2. Paresthesias and subjective sensory loss throughout the left upper extremity from the shoulder downward and no particular nerve or dermatomal distribution. Stroke is a consideration here, as would be cervical radicular symptoms and peripheral nerve symptoms. Reflexes are hyperactive in the left hemibody, potentially pointing more towards brain or cervical spinal cord. PLAN: 1. Routine EEG 2. MRI brain without contrast 3. MRI cervical spine without contrast 4. MRA head and neck, both without contrast (reported allergy to contrast ) 5. If any acute or chronic cerebrovascular disease is found or if there are significant white matter changes suggestive of small vessel disease he could be on aspirin 81 mg daily 6. Further recommendations to follow the EEG and MRI studies 1. Stroke-like symptoms (R29.90: Unspecified symptoms and signs involving the nervous system) 2. Seizure-like activity (R56.9: Unspecified convulsions) 3. Neuropathy (G62.9: Polyneuropathy, unspecified) Extracted from: Title:Admission H & P Author:Jose Green MD ate:09/17/22 1. Stroke-like symptoms (R29 .90: Unspecified symptoms and signs involving the nervous system) Vague symptoms, CT Noncon brain was negative for any acute ischemic changes. Patient has allergies to IV contrast were not able to obtain a CTA. I will order carotid Dopplers. MRI of the brain. Consult neurology. NIH stroke scale on presentation was at 2, we will reassess. Start the patient on aspirin. Obtain lipid panel and consider starting on statin 2. Seizure-like activity (R56.9: Unspecified convulsions) Not sure if it is related to syncope. I will not start antiepileptic medication. We will discuss with neurology 3. Neuropathy (G62.9: Polyneuropathy, unspecified) In the past treated with Cutler and gabapentin, patient reported no improvement. Is not taking any medication at this moment. Monitor Orders: enoxaparin, 40 mg = 0.4 mL, Injection, SubCutaneous, Daily, Routine, Start date 09/18/22 9:00:00 EST, 09/17/22 22:30:00 EST Below the Knee Intermittent Pneumatic Compression Device Cardiac Monitoring Communication Order Communication Order Physician to Nursing Consult to Neurology Dysphagia Screen Evaluate Need For Continued Telemetry HgbA1c Lipid Panel MRI Brain w/o Contrast NPO Diet Occupational Therapy Evaluate Patient, Develop a Plan of Care and Implement Plan Physical Therapy Evaluate Patient, Develop a Plan of Care and Implement Plan Place in Status Resuscitation Status - Full Speech Language Pathology Evaluate Patient, Develop a Plan of Care and Implement Plan Speech Language Pathology Swallow Eval; Evaluate Pt, Develop a Plan of Care & Implement Plan Stroke Education Stroke Quality Measures Up ad [place] US Carotid Duplex Bilateral Weight Addendum by Gabriel Green MD on September 18, 2022 07:19:18 EST Patient's symptoms resolved by the time I saw him, and he was outside of the window for tPA, not a candidate, telestroke wasn't contacted by the ED for the mentioned reasons Addendum by Gabriel Green MD on September 19, 2022 02:39:14 EST Obs status less than 2 MN stay Extracted from: Title:ED Note Author:Yuri Griffin DO Date :09/17/22 Stroke-like symptoms (R29.90 : Unspecified symptoms and signs involving the nervous system) Orders: Automated Diff Basic Metabolic Panel CBC w/ Auto Diff [place] Stroke Scale Communication Order Physician to Nursing Continuous Pulse Oximetry CT Head or Brain w/o Contrast Drug Screen Urine ED Cardiac Monitoring ED Physician consult Hospitalist for continued care eGFR Extra Espino Tube NPO Diet Oxygen Therapy PT & PTT Routine Capillary Glucose POC Saline Lock Insert Stroke Quality Measures Troponin 0 Hr. UA With Cult Reflex Vital Signs XR Chest Single View [facility] Discharge instructions 09-19-2022 Note Date & Type Note Facility 09-19-2022 Hospital Discharg e instructions Patient Education 09/19/2022 10:32:41 Cervical Radiculopathy Cervical Radiculopathy Cervical radiculopathy happens when a nerve in the neck (a cervical nerve) is pinched or bruised. This condition can happen because of an injury to the cervical spine (vertebrae) in the neck, or as part of the normal aging process. Pressure on the cervical nerves can cause pain or numbness that travels from the neck all the way down into the arm and fingers. Usually, this condition gets better with rest. Treatment may be needed if the condition does not improve. What are the causes? This condition may be caused by: A neck injury. A bulging (herniated) disk. Muscle spasms. Muscle tightness in the neck because of overuse. Arthritis. Breakdown or degeneration in the bones and joints of the spine (spondylosis) due to aging. Bone spurs that may develop near the cervical nerves. What are the signs or symptoms? Symptoms of this condition include: Pain. The pain may travel from the neck to the arm and hand. The pain can be severe or irritating. It may be worse when you move your neck. Numbness or tingling in your arm or hand. Weakness in the affected arm and hand, in severe cases. How is this diagnosed? This condition may be diagnosed based on your symptoms, your medical history, and a physical exam. You may also have tests, including: X-rays. A CT scan. An MRI. An electromyogram (EMG). Nerve conduction tests. How is this treated? In many cases, treatment is not needed for this condition. With rest, the condition usually gets better over time. If treatment is needed, options may include: Wearing a soft neck collar (cervical collar) for short periods of time, as told by your health care provider. Doing physical therapy to strengthen your neck muscles. Taking medicines, such as NSAIDs or oral corticosteroids. Having spinal injections, in severe cases. Having surgery. This may be needed if other treatments do not help. Different types of surgery may be done depending on the cause of this condition. Follow these instructions at home: If you have a cervical collar: Wear it as told by your health care provider. Remove it only as told by your health care provider. Ask your health care provider if you can remove the collar for cleaning and bathing. If you are allowed to remove the collar for cleaning or bathing: ?Follow instructions from your health care provider about how to remove the collar safely. ?Clean the collar by wiping it with mild soap and water and drying it completely. ?Take out any removable pads in the collar every 1 2 days, and wash them by hand with soap and water. Let them air-dry completely before you put them back in the collar. ?Check your skin under the collar for irritation or sores. If you see any, tell your health care provider. Managing pain Take fizq-gvc-rcdwzgr and prescription medicines only as told by your health care provider. If directed, put ice on the affected area. ?If you have a soft neck collar, remove it as told by your health care provider. ?Put ice in a plastic bag. ?Place a towel between your skin and the bag. ?Leave the ice on for 20 minutes, 2 3 times a day. If applying ice does not help, you can try using heat. Use the heat source that your health care provider recommends, such as a moist heat pack or a heating pad. ?Place a towel between your skin and the heat source. ?Leave the heat on for 20 30 minutes. ?Remove the heat if your skin turns bright red. This is especially important if you are unable to feel pain, heat, or cold. You may have a greater risk of getting burned. Try a gentle neck and shoulder massage to help relieve symptoms. Activity Rest as needed. Return to your normal activities as told by your health care provider. Ask your health care provider what activities are safe for you. Do stretching and strengthening exercises as told by your health care provider or physical therapist. Do not lift anything that is heavier than 10 lb (4.5 kg) until your health care provider tells you that it is safe. General instructions Use a flat pillow when you sleep. Do not drive while wearing a cervical collar. If you do not have a cervical collar, ask your health care provider if it is safe to drive while your neck heals. Ask your health care provider if the medicine prescribed to you requires you to avoid driving or using heavy machinery. Do not use any products that contain nicotine or tobacco, such as cigarettes, e-cigarettes, and chewing tobacco. These can delay healing. If you need help quitting, ask your health care provider. Keep all follow-up visits as told by your health care provider. This is important. Contact a health care provider if: Your condition does not improve with treatment. Get help right away if: Your pain gets much worse and cannot be controlled with medicines. You have weakness or numbness in your hand, arm, face, or leg. You have a high fever. You have a stiff, rigid neck. You lose control of your bowels or your bladder (have incontinence). You have trouble with walking, balance, or speaking. Summary Cervical radiculopathy happens when a nerve in the neck is pinched or bruised. A nerve can get pinched from a bulging disk, arthritis, muscle spasms, or an injury to the neck. Symptoms include pain, tingling, or numbness radiating from the neck into the arm or hand. Weakness can also occur in severe cases. Treatment may include rest, wearing a cervical collar, and physical therapy. Medicines may be prescribed to help with pain. In severe cases, injections or surgery may be needed. This information is not intended to replace advice given to you by your health care provider. Make sure you discuss any questions you have with your health care provider. Document Released: 04/19/2002 Document Revised: 06/15/2019 Document Reviewed: 06/15/2019 [employer] Patient Education 2020 [employer]. 09/19/2022 10:32:41 Paresthesia Paresthesia Paresthesia is an abnormal burning or prickling sensation. It is usually felt in the hands, arms, legs, or feet. However, it may occur in any part of the body. Usually, paresthesia is not painful. It may feel like: Tingling or numbness. Buzzing. Itching. Paresthesia may occur without any clear cause, or it may be caused by: Breathing too quickly (hyperventilation). Pressure on a nerve. An underlying medical condition. Side effects of a medication. Nutritional deficiencies. Exposure to toxic chemicals. Most people experience temporary (transient) paresthesia at some time in their lives. For some people, it may be long-lasting (chronic) because of an underlying medical condition. If you have paresthesia that lasts a long time, you may need to be evaluated by your health care provider. Follow these instructions at home: Alcohol use Do not drink alcohol if: ?Your health care provider tells you not to drink. ?You are , may be , or are planning to become . If you drink alcohol: ?Limit how much you use to: ?0 1 drink a day for women. ?0 2 drinks a day for men. ?Be aware of how much alcohol is in your drink. In the [place] one drink equals one 12 oz bottle of beer (355 mL), one 5 oz glass of wine (148 mL), or one 1 oz glass of hard liquor (44 mL). Nutrition Eat a healthy diet. This includes: ?Eating foods that are high in fiber, such as fresh fruits and vegetables, whole grains, and beans. ?Limiting foods that are high in fat and processed sugars, such as fried or sweet foods. General instructions Take bvat-qql-vmdzjdb and prescription medicines only as told by your health care provider. Do not use any products that contain nicotine or tobacco, such as cigarettes and e-cigarettes. These can keep blood from reaching damaged nerves. If you need help quitting, ask your health care provider. If you have diabetes, work closely with your health care provider to keep your blood sugar under control. If you have numbness in your feet: ?Check every day for signs of injury or infection. Watch for redness, warmth, and swelling. ?Wear padded socks and comfortable shoes. These help protect your feet. Keep all follow-up visits as told by your health care provider. This is important. Contact a health care provider if you: Have paresthesia that gets worse or does not go away. Have a burning or prickling feeling that gets worse when you walk. Have pain, cramps, or dizziness. Develop a rash. Get help right away if you: Feel weak. Have trouble walking or moving. Have problems with speech, understanding, or vision. Feel confused. Cannot control your bladder or bowel movements. Have numbness after an injury. Develop new weakness in an arm or leg. Faint. Summary Paresthesia is an abnormal burning or prickling sensation that is usually felt in the hands, arms, legs, or feet. It may also occur in other parts of the body. Paresthesia may occur without any clear cause, or it may be caused by breathing too quickly (hyperventilation), pressure on a nerve, an underlying medical condition, side effects of a medication, nutritional deficiencies, or exposure to toxic chemicals. If you have paresthesia that lasts a long time, you may need to be evaluated by your health care provider. This information is not intended to replace advice given to you by your health care provider. Make sure you discuss any questions you have with your health care provider. Document Released: 07/15/2003 Document Revised: 08/20/2019 Document Reviewed: 08/03/2018 [employer] Patient Education 2020 [employer] 09/19/2022 10:32:41 Spinal Stenosis Spinal Stenosis Spinal stenosis occurs when the open space (spinal canal) between the bones of your spine (vertebrae) narrows, putting pressure on the spinal cord or nerves. What are the causes? This condition is caused by areas of bone pushing into the central canals of your vertebrae. This condition may be present at (congenital), or it may be caused by: Arthritic deterioration of your vertebrae (spinal degeneration). This usually starts around age 50. Injury or trauma to the spine. Tumors in the spine. Calcium deposits in the spine. What are the signs or symptoms? Symptoms of this condition include: Pain in the neck or back that is generally worse with activities, particularly when standing and walking. Numbness, tingling, hot or cold sensations, weakness, or weariness in your legs. Pain going up and down the leg (sciatica). Frequent episodes of falling. A foot-slapping gait that leads to muscle weakness. In more serious cases, you may develop: Problems passing stool or passing urine. Difficulty having sex. Loss of feeling in part or all of your leg. Symptoms may come on slowly and get worse over time. How is this diagnosed? This condition is diagnosed based on your medical history and a physical exam. Tests will also be done, such as: MRI. CT scan. X-ray. How is this treated? Treatment for this condition often focuses on managing your pain and any other symptoms. Treatment may include: Practicing good posture to lessen pressure on your nerves. Exercising to strengthen muscles, build endurance, improve balance, and maintain good joint movement (range of motion). Losing weight, if needed. Taking medicines to reduce swelling, inflammation, or pain. Assistive devices, such as a corset or brace. In some cases, surgery may be needed. The most common procedure is decompression laminectomy. This is done to remove excess bone that puts pressure on your nerve roots. Follow these instructions at home: Managing pain, stiffness, and swelling Do all exercises and stretches as told by your health care provider. Practice good posture. If you were given a brace or a corset, wear it as told by your health care provider. Do not do any activities that cause pain. Ask your health care provider what activities are safe for you. Do not lift anything that is heavier than 10 lb (4.5 kg) or the limit that your health care provider tells you. Maintain a healthy weight. Talk with your health care provider if you need help losing weight. If directed, apply heat to the affected area as often as told by your health care provider. Use the heat source that your health care provider recommends, such as a moist heat pack or a heating pad. ?Place a towel between your skin and the heat source. ?Leave the heat on for 20 30 minutes. ?Remove the heat if your skin turns bright red. This is especially important if you are not able to feel pain, heat, or cold. You may have a greater risk of getting burned. General instructions Take wbsx-kug-pflxhjl and prescription medicines only as told by your health care provider. Do not use any products that contain nicotine or tobacco, such as cigarettes and e-cigarettes. If you need help quitting, ask your health care provider. Eat a healthy diet. This includes plenty of fruits and vegetables, whole grains, and low-fat (lean) protein. Keep all follow-up visits as told by your health care provider. This is important. Contact a health care provider if: Your symptoms do not get better or they get worse. You have a fever. Get help right away if: You have new or worse pain in your neck or upper back. You have severe pain that cannot be controlled with medicines. You are dizzy. You have vision problems, blurred vision, or double vision. You have a severe headache that is worse when you stand. You have nausea or you vomit. You develop new or worse numbness or tingling in your back or legs. You have pain, redness, swelling, or warmth in your arm or leg. Summary Spinal stenosis occurs when the open space (spinal canal) between the bones of your spine (vertebrae) narrows. This narrowing puts pressure on the spinal cord or nerves. Spinal stenosis can cause numbness, weakness, or pain in the neck, back, and legs. This condition may be caused by a defect, arthritic deterioration of your vertebrae, injury, tumors, or calcium deposits. This condition is usually diagnosed with MRIs, CT scans, and X-rays. This information is not intended to replace advice given to you by your health care provider. Make sure you discuss any questions you have with your health care provider. Document Released: 10/14/2004 Document Revised: 07/07/2018 Document Reviewed: 06/29/2017 [employer] Patient Education 2020 [employer]. Follow Up Care 09/17/2022 18:51:18 With:Oliverio Forestburgh Address: [address] [place] [address]- Business (1) When: Unknown Comments:Call for followup appointment 7-10 days With:Kuldeep LAMA, ANA Aguirre Address: [address] [place] [id number]- When:2 to 4 weeks [facility] Clinical Note 02-03-2022 Note Date & Type Note Facility 02-03-2022 Note Indication: Pain. Comparison: CT exam of 01/28/2021. Procedure: Axial images were made from the diaphragms through the symphysis pubis. No oral or IV contrast was given. Dose reduction techniques were achieved by using automated exposure control and/or adjustment of mA and/or kV according to patient size and/or use of iterative reconstruction technique. Findings: Liver/Biliary System: Diffuse fatty infiltration of the liver. No liver masses. No gallstones or cholecystitis. Pancreas/Spleen: No pancreatic lesions are seen, in limitation of no IV contrast. No evidence of acute pancreatitis. No splenomegaly. Kidneys/Adrenals: Stable small bilateral renal cysts. No renal or ureteral stones are seen. No hydronephrosis or hydroureter bilaterally. Aorta/Vessels: No evidence of aortic aneurysm. Evaluation of vessels is limited due to lack of IV contrast. Bowel/Fluid/Nodes: No bowel dilatation. No bowel wall thickening. Colonic diverticulosis with no evidence of diverticulitis. Normal appendix. No ascites or fluid collections. No adenopathy. Lung bases: Clear. Other findings: No aggressive osseous lesions are seen. Pelvis: No pelvic masses or adenopathy. Bladder, seminal vesicles and prostate grossly unremarkable. No free fluid seen in the pelvis. Other Findings: No aggressive osseous lesions are seen. Impression: 1. No evidence of acute abdominal or pelvic process. No CT findings to explain patient's abdominal pain. 2. Colonic diverticulosis with no evidence of diverticulitis. Stable small bilateral renal cysts. Diffuse fatty infiltration of the liver. Electronically authenticated by: BROCK HAWKINS Date: 2022-02-03 20:58 [facility] Clinical Note 07-07-2021 Note Date & Type Note Facility 07-07-2021 Note PROCEDURE: XR HIP LT 2 3V W PELVIS HISTORY: Pain of left hip joint , left groin pain, acute COMPARISON: None. FINDINGS: BONES:No fracture, acute abnormality, or significant arthropathy. SOFT TISSUES:No visible soft tissue swelling. EFFUSION:None visible. OTHER: Negative. IMPRESSION: 1. No acute bone abnormality, significant degenerative changes, appreciable bone lesion. Electronically authenticated by: ROMAINE PALOMO Date: 2021-07-07 12:18 [facility] Clinical Note 04-22-2021 Note Date & Type Note Facility 04-22-2021 Note PROCEDURE: XR ANKLE RT MIN 3 VIEWS COMPARISON: None. HISTORY: Pain FINDINGS: BONES:No fracture, acute abnormality, or significant arthropathy. SOFT TISSUES:Mild soft tissue swelling EFFUSION:None visible. OTHER: Negative. IMPRESSION: No acute fracture Electronically authenticated by: KELLY MADRIGAL Date: 2021-04-21 22:57 [facility] Evaluation + Plan note Note Date & Type Note Facility Evaluation + Plan note Future Appointments Appointment Date:11/26/2024 10:45:00 AM Scheduled Provider:Corey DOUGLASS MD Location:[facility] Appointment Type:URO Office Visit Diagnostic Tests PendingPSA Total 07/27/24 [facility] Hospital course Narrative Note Date & Type Note Facility Hospital course Narrative No data available for this section [facility] Progress note Note Date & Type Note Facility Progress note No data available for this section [facility] Summary Purpose Family History No Family History Records FoundNo Family History Records Found No data available for this section Advance Directives No Advanced Directives Records FoundNo Advanced Directives Records Found Additional Source Comments (unrecognized sect ion and content) No Status Records FoundNo Status Records Found INFORMATION SOURCE (unrecogn ized section and content) DATE CREATED AUTHOR 03/10/2022 [facility] DATE CREATED AUTHOR AUTHOR'S ORGANIZ ATION 07/28/2024 [facility] Patient Care team informatio n (unrecognized section and content) Personnel Name: Oliverio Treadwell DO Address: Address: [address] [place] [id number]- Name: Kristine Knight LPN Personnel Name: OLIVERIO TREADWELL DO Address: Address: [address] [place] [id number]- Name: Kristine Knight LPN FOR RECORDS PERTAINING TO PATIENTS WHO ARE OR HAVE BEEN ENROLLED IN A CHEMICAL DEPENDENCY/SUBSTANCEABUSE PROGRAM, SOME INFORMATION MAY BE OMITTED. This clinical summary was aggregated from multiple sources. Caution should be exercised in using it in the provision of clinical care. This summary normalizes information from multiple sources, and as a consequence, information in this document may materially change the coding, format and clinical context of patient data. In addition, data may be omitted in some cases. CLINICAL DECISIONS SHOULD BE BASED ON THE PRIMARY CLINICAL RECORDS. [facility] [employer] [facility]. provides no warranty or guarantee of the accuracy or completeness of information in this document.
[2024-10-12 14:38] LABS: Prostate Specific Antigen Dx 1.04 ng/mL (<=4.00)
== END 2024-10-12 13:35 | disposition home or self-care (01) ==
LOC: LAB 13:36
PROVIDERS: PCP Nurse Practitioner Family; Visit Provider Urology
DX: N40.1 Benign prostatic hyperplasia with lower urinary tract symptoms (principal)
CPT/HCPCS: 36415; 84153